=== PATIENT | male | born 1935 | race Caucasian/White ===

== ENCOUNTER → 2020-03-07 06:48 | Outpatient (CLI) | payer MEDICARE, SELFPAY ==
--- NOTE | 2020-03-07 06:49 | NM_ITS ---
APPROVED REPORT Exam: Nuclear Stress Test Indication: abn ekg, fm hx, pre-op surgery Patient Location: Outpatient Stress Tech: Tiny Erwin [place] Tech:Leighann Hernandez KERAAmilcar RT(R)(N) Ht: 5 ft 11 in Wt: 166 lbs HR: 62 bpm BP: 141/67 mmHg BSA: 1.95 m2 BMI: 23.1 History: abn ekg, fm hx, pre-op surgery Procedure: Patient received a 0.4 mg of intravenous Lexiscan, resting heart rate 62 bpm, resting blood pressure 141/67 mmHg, with Lexiscan maximum heart rate achived was 87 bpm which is Less than 85 % of the maximum predicted heart rate and blood pressure was 127/66 mmHg. With Lexiscan, patient denied any complaint of chest pain. Electrocardiogram Resting electrocardiogram showed sinus rhythm right bundle branch block, with Lexiscan there is less than 1.[address] segment depression noted from the baseline EKG. The EKG portion of the Lexiscan Myoview is nondiagnostic. Cardiac Stress and Resting SPECT Images: Cardiac Stress and Resting SPECT images were obtained using technetium 99m Myoview 32.5 mCi stress and 10.66 mCi at rest. Gated SPECT with analysis of segmental wall motion and calculation of the ejection fraction also done. Cardiac stress and resting SPECT images show a fixed defect involving the inferior wall with normal contractility gated SPECT is likely secondary to soft tissue attenuation, no reversible ischemia seen. Computer derived ejection fraction is over 65% with no regional wall motion abnormality, right ventricle is mildly enlarged with normal contractility. Conclusion: 1. The EKG portion of the Lexiscan Myoview is nondiagnostic. 2. No scintigraphic evidence of reversible ischemia seen, computer derived ejection fraction is over 65% with no regional wall motion abnormality, right ventricle is mildly enlarged with normal contractility. The fixed inferior defect is likely secondary to diaphragmatic attenuation. 3. Likely normal Lexiscan Myoview study. Electronically signed by : Carlitos Gore, 03/07/2020 12:01:41
--- NOTE | 2020-03-07 06:49 | CA_ITS ---
APPROVED REPORT Exam: Pharmacologic Technologist: Agata Dowling, Ht: 5 ft 11 in Wt: 165 lbs BSA: 1.94 m2 HR: 62 bpm BP: 141/67 mmHg Rhythm: SINUS RHYTHM,RBBB WITH STTW ABNORMALITIES Medical History Medications: Metoprolol,,,,, Asa,,,,, TAMSULOSIN,,,,, Allergies: No known drug allergies Cardiac Risk Factors: HTN Stress Test Details Test: LEXISCAN HR Resting HR: 59 bpm Max Heart Rate (APMHR): 137 bpm Max HR Achieved: 95 bpm Target HR (85% APMHR): 116 bpm % of APMHR: 69 Recovery HR: 81 bpm BP Resting BP: 141.0/67.0 mmHg Max BP: 141.0/67.0 mmHg Recovery BP: 131.0/65.0 mmHg ECG Resting ECG: SINUS RHYTHM,RBBB WITH STTW ABNORMALITES Medications Administered Cardizem Injection ( mg at ) Clinical Reason for Termination: Completed Protocol Exercise duration: 04:12 min Highest Stage Achieved: Exercise capacity: 1.0 METs Stress ECG Conclusion DURING INFUSION PATIENT HAD NO SYMPTOMS. NO ARRHYTHMIAS/ECTOPY. <1.[address] SEGMENT CHANGES. NON-DIAGNOSTIC Test Summary REST . . . . . . . Sitting REST . . . . . . . Sitting REST 22:29 . . 59 . 141/ 67 . . Stage 1 . . . . . . . Myoview Injected Stage 1 01:00 . . 84 . . . . Stage 2 01:00 . . 89 . 117/ 58 . . Stage 3 01:00 . . 89 . 127/ 66 . . Stage 4 01:00 . . 83 . 131/ 70 . . Stage 4 01:12 . . 84 . 125/ 67 . Stop exercise at 04:12 RECOVERY 01:00 . . 84 . . . . RECOVERY 02:00 . . 79 . . . . RECOVERY 03:00 . . 79 . 131/ 68 . . RECOVERY 04:00 . . 79 . 124/ 67 . . RECOVERY 04:15 . . 80 . 124/ 67 . . Electronically signed by : Carlitos Gore, 03/07/2020 11:57:39
--- NOTE | 2020-03-07 06:49 | CA_ITS ---
APPROVED REPORT EXAM: Comprehensive 2D, Doppler, and color-flow Echocardiogram [facility] Electrolytic: Suzie Mensah RT(R) Ht: 5 ft 11 in Wt: 166lbs BSA: 1.95 BP: 151/76 mmHg Indications: ex smoker, HTN, lymphoma, Abn EKG 2D Dimensions LVOT 1.84 cm (M/F) 1.5-2.5 M-Mode Dimensions RVDd 1.75 cm (0.9-2.6) LVDd 4.22 cm (3.5-5.7) LVDs 3.31 cm (3.5-5.7) IVSd 1.06 cm (0.6-1.1) PWd 0.65 cm (0.6-1.1) EF (Teich) 44.00% FS 21.60% EDV (Teich) 79.50 mL ESV (Teich) 44.50 mL LV Diastology E/A Ratio 1.48 Mitral Valve MV A Velocity 57.00 (40-130 cm/s) Left Ventricle Left atrium is mildly enlarged, left ventricle is normal size, mild concentric left ventricular hypertrophy, visually estimated ejection fraction 55% with no regional wall motion abnormality, grade 2 diastolic dysfunction seen without tissue Doppler evidence of raise left atrial pressure. Right Ventricle Right atrium and right ventricular mildly enlarged with normal contractility. Aortic Valve Aortic valve is thickened and calcified leaflet continue to display good mobility, there is no aortic stenosis, there is moderate aortic insufficiency. Mitral Valve Mitral valve leaflets are minimally thickened, there is mild mitral regurgitation. Tricuspid Valve Tricuspid valve is grossly normal, there is mild tricuspid regurgitation, calculated right ventricular systolic pressure is 43 mmHg. Pulmonic Valve Pulmonic valve is poorly visualized. Great Vessels Aortic root is normal size. Pericardium No significant pericardial effusion noted. Conclusion 1. Mild biatrial enlargement, normal left ventricular size, mild concentric left ventricular hypertrophy, visually estimated ejection fraction 55% with no regional wall motion abnormality, grade 2 diastolic dysfunction seen without tissue Doppler evidence of raise left atrial pressure. 2. Mildly enlarged right ventricle with normal contractility. 3. Thickened and calcified aortic valve without aortic stenosis, there is moderate aortic insufficiency. 4. Mild mitral and tricuspid regurgitation, calculated right ventricular systolic pressure is 43 mmHg. 5. No significant pericardial effusion noted. Electronically signed by : Carlitos Gore, 03/07/2020 11:56:25
== END ==
PROVIDERS: PCP General Practice; Visit Provider Urology
DX: R94.31 Abnormal electrocardiogram [ECG] [EKG]
CPT/HCPCS: 78452; 93017; 93306; A9502; J2785

== ENCOUNTER 2023-09-29 15:27 | Outpatient (CLI) | payer MEDICARE, SELFPAY | END 2023-09-29 23:59 | disposition home or self-care (01) | LOC: RT 15:29 | PROVIDERS: Visit Provider Nurse Practitioner Family | DX: R00.1 Bradycardia, unspecified (principal) | CPT/HCPCS: 93270 ==

== ENCOUNTER 2023-10-10 10:13 | Outpatient (CLI) | payer MEDICARE, SELFPAY ==
--- NOTE | 2023-10-10 10:13 | CA_ITS ---
APPROVED REPORT EXAM: Comprehensive 2D, Doppler, and color-flow Echocardiogram [facility] Specialists: Aranza Pastrana RVT Ht: 5 ft 11 in Wt: 170lbs BSA: 1.97 BP: 140/65 mmHg Indications: CP,RBBB,BRADYCARDIA,ABN EKG,SOA,EX SMOKER 2D Dimensions LA Volume 54.80 mL LA Volume Index 27.82 mL/m2 (M/F) 16-34 M-Mode Dimensions RVDd 2.42 cm (0.9-2.6) LA Diam 3.72 cm (1.9-4.0) LVDd 4.42 cm (3.5-5.7) LVDs 2.72 cm (3.5-5.7) IVSd 0.72 cm (0.6-1.1) PWd 0.49 cm (0.6-1.1) EF (Teich) 69.00% FS 38.50% EDV (Teich) 88.60 mL TAPSE 3.11 (<1.7) ESV (Teich) 27.50 mL LV Diastology E Decel Time 193 (160-240 msec) E/A Ratio 1.5 Aortic Valve FRANK Index 1.20 cm2/m2 AoV Peak Renny. 164.0 (50-130 cm/s) AI PHT 794.00 ms AO Peak GR. 10.70 mmHg AO Mean GR. 4.70 (<5 mmHg) AO VTI 30.9 (18-25 cm) FRANK (VTI) 2.43 (2.5-4.5 cm2) Mitral Valve MV E Max Renny. 82.0 (40-130 cm/s) MV A Velocity 53.0 (40-130 cm/s) E/A Ratio 1.54 MV PHT 57.0 ms Pulmonary Valve PV Peak Velocity 79.0 (50-150 cm/s) Tricuspid Valve TR P. Velocity 297.00 cm/s RAP Estimate 10.00 mmHg RVSP 45.20 mmHg Left Ventricle The left ventricle is normal size. Left ventricular systolic function is mild to moderately decreased. There is proximal septal thickening present. There is mild to moderate global hypokinesis. There is moderate hypokinesis of the septal and inferoseptal LV lucero. The septum is asynchronous. Grade 2 diastolic dysfunction is present. LVEF is 40%. Right Ventricle The right ventricle is normal size. The right ventricular systolic function is normal. Atria Left atrium is mildly dilated. Right atrium is mildly dilated. There is no Doppler evidence of interatrial shunt. Aortic Valve The aortic valve is mildly thickened. There is no aortic valvular stenosis. Mild aortic regurgitation. Mitral Valve The mitral valve leaflets are mildly thickened. No evidence of mitral valve stenosis. Mild mitral regurgitation. Tricuspid Valve The tricuspid valve leaflets are thin and pliable. Mild tricuspid regurgitation. RVSP is 30-35 mmHg. Pulmonic Valve The pulmonary valve is normal in structure. Mild to moderate pulmonic regurgitation. Great Vessels The aortic root is normal in size. The ascending aorta is not well visualized. IVC is normal in size and collapses >50% with inspiration. Pericardium There is no pericardial effusion. Other Information Study Quality: Fair Conclusion Mild to moderate reduction in LV systolic function (LVEF 40%). Grade 2 diastolic dysfunction is present. Moderate hypokinesis of the septal and inferoseptal LV lucero. The septum is asynchronous. Mild biatrial dilation. Mild AI, mild MR, mild TR Mild to moderate PI. RVSP 30-35 mmHg. Electronically signed by : Nadege Roth MD 10/11/2023 13:24:54
[2023-10-10 10:47] VITALS: BMI 23.7
[2023-10-10 10:52] VITALS: BP 156/81; PULSE 67; RESP 16; O2SAT 98
[2023-10-10] MEDS: METOPROLOL TARTRATE 25MG TABLET *IVABRADINE+METOPROLOL REGIMINE 25 MG PO (11:00)
[2023-10-10 11:06] LABS: Chloride 105 mmol/L (98-107); Sodium 140 mmol/L (136-145)
[2023-10-10 11:07] LABS: Potassium 4.2 mmoL/L (3.5-5.1)
[2023-10-10 11:09] LABS: Blood Urea Nitrogen 15 mg/dl (9-20); Creatinine Clearance Estimated 57 mL/min (50-200); Estimated Glomerular Filt Rate 71 ml/min (>60); GFR (African American) 86 ML/MIN (>60)
[2023-10-10 11:10] LABS: Anion Gap 7.2 mEq/L (5-15); Calcium 9.5 mg/dl (8.4-10.2); Carbon Dioxide 32 mmol/L (22.0-30.0); Glucose 93 mg/dl (74-100)
--- NOTE | 2023-10-10 11:22 | CT_ITS ---
APPROVED REPORT Hogshead Wrecker: CLINICAL INDICATION Chest Pain TECHNIQUE Image Acquisition: A 128 slice MDCT scanner ([employer]) was used for data acquisition. A noncontrast coronary calcium scan was performed. A CT attenuation threshold of 130 Hounsfield units (HU) was used for the detection of calcium in contiguous voxels of 1 sq mm in area to be counted as individual lesions. Bolus tracking in the ascending aorta with a threshold of 180 HU was performed. Immediately afterwards, ECG synchronized cardiac CT was then performed from the cardiac base to apex using retrospective gating with ECG tube current modulation. A total of 85 mL of Isovue 370 mg/mL contrast medium was administered at 5 mL/sec followed by a saline flush using a biphasic injection protocol. A tube voltage of 120 KVp was used. The patient received the following medications prior to the cardiac CT. 25 mg of oral metoprolol 0.8 mg of sublingual nitroglycerin The average heart rate at the time of acquisition was 54 bpm and regular. Image Reconstruction Transaxial images were reconstructed at 0.67 mm slide thickness. Data was reviewed interactively on an advanced workstation capable of 2 and 3-dimensional displays in all conventional reconstruction formats, including multiplanar reformations, maximum intensity projections, curved multiplanar reformations, and volume rendered reconstructions. When applicable, selected routine images describing the relevant coronary anatomy and pathology were saved and sent to PACS. Complications None Technical Quality Overall image quality was good. Coronary artery opacification was adequate. Total DLP (Dose-Length Product) is 1561.9 mGy-cm. The reported value represents the total of one or more individual components during the CT acquisition of this date and at this time, and as such, the same value may appear in more than one CT report depending on the interpreting/reporting physicians. COMPARISON None FINDINGS CT Coronary Calcium Scoring LMA (Left Main Artery) = 0 LAD (Left Anterior Descending) = 393 LCX (Left Coronary Circumflex) = 140 RCA (Right Coronary Artery) = 2 Total Calcium Score = 535 using the AJ-130 method. The observed calcium score of 535 is at 50th percentile for subjects of the same age, sex, and race/ethnicity. The interpretation of the calcium heart score is based on the following continuum*: 0 = no calcified plaque detected (risk of coronary artery disease is very low ??? less than 5%) 1-10 = calcium detected in extremely minimal levels (risk of coronary diseases is still low ??? less than 10%) 11-100 = mild levels of plaque detected with certainty (mild or minimal narrowing of heart arteries is likely) 101-400 = definite,at least moderate levels of plaque detected (relatively high risk of a heart attack within 3-5 years) >401-999 = extensive levels of plaque detected (high risk of heart attack, high levels of vascular disease are present, high likelihood of at least one significant coronary narrowing) *The calcium heart score quantifies the burden of coronary calcification/plaque in the coronary arteries. The calcium heart score is not able to evaluate the presence or burden of non-calcified (i.e. soft) plaque. There is also identifiable calcification in the ascending thoracic aorta and the mitral valve annulus.. Coronary CT Angiography The coronary arterial system is right dominant. Quantitative Stenosis Grading: Left Main (LM): The left main originates normally from the left sinus of Valsalva. The LM trifurcates into the left anterior descending artery, ramus intermedius, and left circumflex artery. The LM is patent with no evidence of atherosclerosis. Left Anterior Descending (LAD) and Diagonal Branches: The LAD gives off 2 diagonal branch(es). There is mixed calcified/noncalcified plaque in the proximal LAD first diagonal branch, with up to 70-90% luminal stenosis. There is no evidence of LAD-myocardial bridge. Ramus intermedius: There is calcified plaque along the RI, but with no luminal stenosis. Left Circumflex (LCX) and Obtuse Marginals (OM): The LCX gives off 2 Obtuse Marginal (OM) branch(es). There is mixed calcified/noncalcified plaque in the proximal and mid LAD Cx, with < 30% luminal stenosis. There is also calcified plaque in the OM1, with up to 25-50% luminal stenosis. Right Coronary Artery (RCA): The RCA originates normally from the right sinus of Valsalva. The RCA gives off a posterior descending artery (PDA) and posterolateral (PL) branches. There is a focus of calcified plaque in the proximal RCA, with no luminal stenosis. Non-Coronary Cardiac Findings: Analysis of the left ventricular (LV) structure and function was performed after 3-D reconstruction of the LV from axial images, with user-corrected automatic contouring for assessment of LV volumes and user-defined reconstruction from oblique planes for measurement of 3-D cardiac structure and function. -The left ventricle systolic function is mildly reduced (LVEF 48%). -There is no left atrial appendage filling defect. Two right pulmonary veins and two left pulmonary veins drain normally into the left atrium. -No pericardial thickening or calcification. -Central and branch pulmonary arteries in the [id number] are unremarkable. -Thoracic aorta within the visualized thoracic aortic-branches in the [id number] is unremarkable. Extracardiac Structures No significant extra-cardiac findings. Note, however, that this study is focused on the cardiac findings. IMPRESSION -Presence of coronary calcification with an Agatston score = 535 using the AJ-130 method. -The observed calcium score of 535 is at 50th percentile for subjects of the same age, sex, and race/ethnicity. -Presence of flow-limiting atherosclerotic plaque in the proximal LAD. -CAD-RADS 4A. Management recommendations per ACC/AHA guidelines*, as clinically appropriate. -Of note the left ventricular systolic function is mildly reduced (LVEF 48%). Correlation with new or recent TTE is recommended. *Recommendations: CAD RADS 0: Reassurance. Consider non-atherosclerotic causes of chest pain. CAD RADS 1: Consider non-atherosclerotic causes of chest pain. Consider preventive therapy and risk factor modification. CAD RADS 2: Consider non-atherosclerotic causes of chest pain. Consider preventive therapy and risk factor modification, particularly for patients with nonobstructive plaque in multiple segments. CAD RADS 3: Consider further functional testing. Consider symptom-guided anti-ischemic and preventive pharmacotherapy as well as risk factor modification per published guideline statements. CAD RADS 4A: Consider further functional testing or invasive coronary angiography with revascularization per published guideline statements. Consider symptom-guided anti-ischemic and preventive pharmacotherapy as well as risk factor modification per published guideline statements. CAD RADS 4B: Invasive coronary angiography recommended with revascularization per published guideline statements. Consider symptom-guided anti-ischemic and preventive pharmacotherapy as well as risk factor modification per published guideline statements. CAD RADS 5: Consider invasive angiography and/or viability assessment with revascularization per published guideline statements. Consider symptom-guided anti-ischemic and preventive pharmacotherapy as well as risk factor modification per published guideline statements. CRITICAL RESULT None COMMUNICATION Per this written report The coronary and cardiac findings of this CCTA were reviewed, reported, and signed by Jatinder Roth MD (Appliances Sample Maker) Conclusion Electronically signed by : Nadege Roth MD 10/18/2023 11:59:31
[2023-10-10 11:45] VITALS: BP 154/87; PULSE 63; RESP 16; O2SAT 97
[2023-10-10] MEDS: NITROGLYCERIN 0.4MG SL TABLET 0.800000000000000044 MG SL (11:45)
[2023-10-10 11:50] VITALS: BP 127/69; PULSE 60; RESP 18; O2SAT 98
[2023-10-10 11:55] VITALS: BP 90/48; PULSE 56; RESP 18; O2SAT 96
[2023-10-10 12:00] VITALS: BP 106/45; PULSE 58; RESP 18; O2SAT 97
[2023-10-10] MEDS: SODIUM CHLORIDE 0.9% 10ML SYR (RAD ONLY) 10 ML IV (12:12)
[2023-10-10] MEDS: 0.9 % SODIUM CHLORIDE 50 ML VIAL IV (12:12)
[2023-10-10] MEDS: IOPAMIDOL-370 (76%);100ML BOTTLE 85 ML IV (12:13)
== END 2023-10-10 12:05 | disposition home or self-care (01) ==
LOC: RT 10:13 → RAD 10:47
PROVIDERS: Visit Provider Internal Medicine
DX: I45.2 Bifascicular block (principal); R07.9 Chest pain, unspecified; R94.31 Abnormal electrocardiogram [ECG] [EKG]
CPT/HCPCS: 75571; 75574; 80048; 93306; Q9967

== ENCOUNTER 2023-10-27 08:26 | Day surgery (SDC) | payer MEDICARE, SELFPAY ==
[2023-10-27] VITALS (16 sets, daily range): BP systolic 88–158; BP diastolic 35–73; PULSE 45–75; RESP 17–24; TEMP 36.6; O2SAT 91–100; BMI 24.3
--- NOTE | 2023-10-27 07:25 | IR_ITS ---
APPROVED REPORT Patient Location: Outpatient PROCEDURES Left heart catheterization Left ventriculogram Selective coronary angiogram Intravascular ultrasound to the LAD Drug-eluting stent deployment to the proximal LAD INDICATION Coronary artery disease, MLA of 3.5 mm??? 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 COMPLICATIONS NONE Estimated Blood Loss: LESS THAN 10 ML TECHNIQUE One percent lidocaine used to anesthetize the right anterior aspect of the wrist. The right radial artery was accessed via the Seldinger technique. A 6 [place] sheath was placed in the right radial artery. 2.5 mg of Verapamil, 800 mcg of nitroglycerin, 1mg Lidocaine and 5000 U Heparin were given through the arterial sheath. The papa catheter was also used to perform left heart catheterization, left ventriculogram and selective coronary angiogram. At the end of the diagnostic angiogram therapeutic heparin was administered giving a therapeutic ACT and the Poppa catheter exchanged for a 6 [place] JL 3 catheter. A Choice PT extra-support wire was placed into the LAD and intravascular ultrasound probe was advanced. MLA measured 3.5 in the proximal LAD for a 3 mm x 18 mm Matthew frontier stent was deployed at 20 michael reducing the severe stenosis to 0%. KENIA-3 flow was present before and after the procedure. During the procedure the apparatus was removed the sheath was removed and hemostasis was achieved using TR banding patient was transferred to postop putting in stable condition ANGIOGRAPHIC RESULTS The left main artery Normal The left anterior descending artery Proximal 30% followed by additional 70% stenosis with mid vessel 10 to 20% stenoses The circumflex artery Dominant vessel with diffuse moderate vascular ectasia with no stenosis greater than 20% throughout The right coronary artery Nondominant yet still large with mild 10 to 20% luminal regularities The VU ventriculogram reveals 40% The left ventricular end-diastolic pressure 15 mmHg IMPRESSION Severe proximal LAD disease Successful stenting the proximal LAD severe disease reduced to 0% with 1 drug-eluting stent Reduced ejection fraction 2-1 Mobitz 2 AV block PLAN 1. Plavix and aspirin 2. Patient will be jailed for CANOPY STRINGER-P 3. Cardiac rehabilitation after CANOPY STRINGER-P placed 4. LDL less than 55 to be achieved with high intensity statin 5. Avoidance of tobacco products 6. Risk factor modification Electronically signed by : Donis Wei MD 10/27/2023 11:22:08
[2023-10-27 08:54] LABS: Basophils # 0.1 K/mm3 (0-0.2); Basophils % 0.8 % (0.1-2.0); Eosinophils # 0.2 K/mm3 (0.0-0.4); Eosinophils % 1.9 % (0.1-12.0); Hemoglobin 13.2 g/dL (14.1-18.0); Lymphocytes # 2.7 K/mm3 (0.7-4.5); Lymphocytes % 32.6 % (10-50); Mean Corpuscular HGB Conc 32.2 g/dL (31.8-35.4); Mean Corpuscular Volume 96.1 fl (80-94); Mean Platelet Volume 8.1 fl (7.4-10.4); Monocytes # 0.4 K/mm3 (0.1-1.0); Monocytes % 4.7 % (1.7-9.3); Platelet Count 205 K/mm3 (142-424); Red Blood Count 4.26 M/mm3 (4.60-6.20); Red Cell Distribution Width 13.9 % (11.5-17.5); White Blood Count 8.4 K/mm3 (4.8-10.8)
[2023-10-27 09:06] LABS: Anion Gap 9.9 mEq/L (5-15); Blood Urea Nitrogen 20 mg/dl (9-20); Calcium 9.4 mg/dl (8.4-10.2); Carbon Dioxide 31 mmol/L (22.0-30.0); Chloride 103 mmol/L (98-107); Creatinine Clearance Estimated 46 mL/min (50-200); Estimated Glomerular Filt Rate 57 ml/min (>60); GFR (African American) 69 ML/MIN (>60); Glucose 103 mg/dl (74-100); Potassium 3.9 mmoL/L (3.5-5.1); Sodium 140 mmol/L (136-145)
[2023-10-27] MEDS: HEPARIN 1,000 UNITS/500ML NS (CATH LAB) 3000 UNIT IV (10:27)
[2023-10-27] MEDS: diphenhydrAMINE 50MG/ML VIAL 50 MG IV (10:27)
[2023-10-27] MEDS: 0.9 % SODIUM CHLORIDE 500 ML 25 ML IV (10:27)
[2023-10-27] MEDS: LIDOCAINE 1% 10ML MDV 20 ML IJ (10:27)
[2023-10-27] MEDS: NITROGLYCERIN 800MCG/8ML SYR (CATH LAB) 800 MCG IA (10:28)
[2023-10-27] MEDS: VERAPAMIL 2.5MG/ML 2ML VIAL 2.5 MG IV (10:28)
[2023-10-27] MEDS: HEPARIN 1,000 UNITS/ML 10ML VIAL (CATH LAB) 10000 UNIT IV (10:28)
[2023-10-27] MEDS: MIDAZOLAM HCL 1MG/1ML 5ML VIAL 1 MG IV (11:10)
[2023-10-27] MEDS: FENTANYL 100MCG/2ML VIAL 50 MCG IV (11:10)
[2023-10-27] MEDS: CLOPIDOGREL 300MG TABLET 600 MG PO (11:20)
[2023-10-27 14:48] LABS: CATHL Activated Clotting Time 355 SEC (74-125)
== END 2023-10-27 14:52 | disposition home or self-care (01) ==
PROVIDERS: PCP Nurse Practitioner Family; Visit Provider Internal Medicine
DX: I44.1 Atrioventricular block, second degree (principal); R93.1 Abnormal findings on diagnostic imaging of heart and coronary circulation; I42.9 Cardiomyopathy, unspecified; Z79.899 Other long term (current) drug therapy; I48.0 Paroxysmal atrial fibrillation; I34.0 Nonrheumatic mitral (valve) insufficiency; I35.1 Nonrheumatic aortic (valve) insufficiency
CPT/HCPCS: 80048; 85025; 85347; 92928; 92978; 93458; 99152; 99153; C1725; C1769; C1876; C9600; J1644

== ENCOUNTER 2023-10-28 11:12 | Outpatient (CLI) | payer MEDICARE, SELFPAY ==
[2023-10-28 11:36] LABS: Basophils # 0.1 K/mm3 (0-0.2); Basophils % 0.4 % (0.1-2.0); Eosinophils # 0.2 K/mm3 (0.0-0.4); Eosinophils % 1.7 % (0.1-12.0); Hematocrit 37.8 % (42.0-52.0); Lymphocytes # 3.3 K/mm3 (0.7-4.5); Lymphocytes % 29.5 % (10-50); Mean Corpuscular HGB Conc 34.3 g/dL (31.8-35.4); Mean Corpuscular Volume 93.5 fl (80-94); Mean Platelet Volume 7.4 fl (7.4-10.4); Monocytes # 0.5 K/mm3 (0.1-1.0); Monocytes % 4.3 % (1.7-9.3); Neutrophils # 7.2 K/mm3 (1.8-7.8); Neutrophils % 64.1 % (37.0-80.0); Platelet Count 194 K/mm3 (142-424); Red Blood Count 4.05 M/mm3 (4.60-6.20); Red Cell Distribution Width 13.7 % (11.5-17.5); White Blood Count 11.2 K/mm3 (4.8-10.8)
[2023-10-28 13:38] LABS: Chloride 104 mmol/L (98-107); Potassium 4.7 mmoL/L (3.5-5.1); Sodium 137 mmol/L (136-145)
[2023-10-28 13:41] LABS: Anion Gap 10.7 mEq/L (5-15); Blood Urea Nitrogen 21 mg/dl (9-20); Carbon Dioxide 27 mmol/L (22.0-30.0); Estimated Glomerular Filt Rate 71 ml/min (>60); GFR (African American) 86 ML/MIN (>60)
[2023-10-28 13:42] LABS: Calcium 9.2 mg/dl (8.4-10.2); Glucose 81 mg/dl (74-100)
== END 2023-10-28 23:59 | disposition home or self-care (01) ==
LOC: LAB 11:12
PROVIDERS: PCP Nurse Practitioner Family; Visit Provider Internal Medicine
DX: I25.10 Atherosclerotic heart disease of native coronary artery without angina pectoris (principal); Z98.61 Coronary angioplasty status
CPT/HCPCS: 36415; 80048; 85025

== ENCOUNTER 2023-11-08 14:31 | Observation (INO) | payer MEDICARE, SELFPAY ==
[2023-11-08] VITALS (15 sets, daily range): BP systolic 103–135; BP diastolic 53–77; PULSE 69–97; RESP 16–20; TEMP 36.6–37.1; O2SAT 93–100; BMI 23.0
--- NOTE | 2023-11-08 07:22 | IR_ITS ---
APPROVED REPORT Patient Location: Outpatient Manager Personal: KENA Lopez RT (R) PROCEDURES 1. Pocket Revision 2. Removal of generator 3. Repositioning of coronary sinus lead 4. Reinsertion of generator INDICATION Positional Diaphramatic Stimulation Informed consent was obtained prior to the procedure. COMPLICATIONS None Estimated Blood Loss: Less than 10 mls TECHNIQUE 1% Lidocaine with epinephrine used to anesthetized the left anterior aspect of the chest. Scalpel was used to make the initial cutaneous incision then was used to dissect down tinto the fascia and existing generator. The generator was removed from the existing pocket. Digital manipulation was required along with intermitten use of a scalpel to revise the pocket. The Coronary Sinus lead was removed from the generator. CS lead was removed form patient under fluoroscopy. The patient was then placed in Trendelenburg position and the subclavian vein was accessed once via the Selinger technique, there is one wire in the vein. A 10.5 Taiwanese sheath was placed under fluoroscopic guidance into the subclavian vein over the wire. The dilator was removed from the sheath. Using fluoroscopic guidance, the CS was then placed into Coronary Sinus with a guide sheath and confrimed with cotrast. Electrical interrogation demonstrated acceptable thresholds and voltage number. The lead was then secured into place using 3-0 silk and attached to the generator. 1 gram of Ancef was used to flush the pocket. Following that the generator was secured to the fascia and in place, Monocryl was used to close the subcutaneous layers while mercedes were used to close the cutaneous layer. A pressure dressing was placed and the patient was transferred to the postop holding area in stable condition for postoperative care. INTERROGATION Electrical interrogation demonstrated acceptable thresholds and voltage number. IMPRESSION 1. Successful Pocket Revision 2. Successful Removal of generator 3. Successful Repositioning of coronary sinus lead 4. Suceessful Reinsertion of generator PLAN 1. Post op wound care Electronically signed by : Donis Wei MD 11/09/2023 13:12:05
[2023-11-08 10:42] LABS: Basophils # 0.1 K/mm3 (0-0.2); Basophils % 0.6 % (0.1-2.0); Eosinophils # 0.1 K/mm3 (0.0-0.4); Eosinophils % 1.6 % (0.1-12.0); Hematocrit 38.7 % (42.0-52.0); Hemoglobin 12.5 g/dL (14.1-18.0); Lymphocytes # 2.4 K/mm3 (0.7-4.5); Lymphocytes % 26.1 % (10-50); Mean Corpuscular HGB Conc 32.4 g/dL (31.8-35.4); Mean Corpuscular Hemoglobin 31.3 pg (27.0-31.2); Mean Corpuscular Volume 96.7 fl (80-94); Mean Platelet Volume 7.8 fl (7.4-10.4); Monocytes # 0.4 K/mm3 (0.1-1.0); Neutrophils # 6.1 K/mm3 (1.8-7.8); Neutrophils % 67.7 % (37.0-80.0); Platelet Count 187 K/mm3 (142-424); Red Cell Distribution Width 13.9 % (11.5-17.5); White Blood Count 9.1 K/mm3 (4.8-10.8)
[2023-11-08 10:48] LABS: Anion Gap 11.1 mEq/L (5-15); Blood Urea Nitrogen 17 mg/dl (9-20); Calcium 9.5 mg/dl (8.4-10.2); Carbon Dioxide 30 mmol/L (22.0-30.0); Chloride 102 mmol/L (98-107); Creatinine Clearance Estimated 55 mL/min (50-200); Estimated Glomerular Filt Rate 71 ml/min (>60); GFR (African American) 86 ML/MIN (>60); Glucose 103 mg/dl (74-100); Potassium 4.1 mmoL/L (3.5-5.1); Sodium 139 mmol/L (136-145)
--- NOTE | 2023-11-08 11:04 | EXP.ANES.CKL ---
[facility] Disclaimer: The information contained in this section may have been updated after the patient was seen, as this information can be updated by other users. 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 LVH (left ventricular hypertrophy) RBBB (right bundle branch block with left anterior fascicular block) SOB (shortness of breath) on exertion Chest pain Lymphoma PAF (paroxysmal atrial fibrillation) Abnormal EKG Encounter for pre-operative cardiovascular clearance Surgical History Status post biventricular pacemaker Social History (Updated 11/08/23 @ 10:23 by Chana Ramirez RN) Smoking Status: Former smoker alcohol intake: never substance use type: denies use current occupational status: employed and disabled Travel in the last 8 weeks: Inside the [place] [facility] Anesthesia Checklist Patient Identification Patient Identification: Arm Band Structural Data Admitted From: Home Planned Operative Procedure/s: Pacemaker Lead Revision Consent for Planned Operative Procedure(s) Verified: Yes Verified Documents: Surgical Consent and History and Physical NPO Status Verified Time NPO: 00:00 Additional verifications Anesthesia Reactions: No Hx Blood Transfusions: No Blood Transfusion Reaction: No Airway Assessment Mallampati Score:: Class II C-Spine Mobility Assessed: Yes TMJ Mobility Assessed: Yes Dentition: Good Dentition (upper partial removed) Neurological Assessment Level of Consciousness: Awake, Alert and Appropriate Anesthesia Plan Anesthesia Risk discussed: Yes Anesthesia Plan: Verified ASA Class: IV Anesthesia Type: MAC
[2023-11-08] MEDS: 0.9 % SODIUM CHLORIDE 1000ML 1,000 ML 25 ML IV (11:44)
[2023-11-08] MEDS: LIDOCAINE 1% W/EPI 1:100,000 20ML VIAL 20 ML SQ (11:44)
[2023-11-08] MEDS: CEFAZOLIN SODIUM 1 GM in 0.9 % SODIUM CHLORIDE 50 ML IV (11:44)
[2023-11-08] MEDS: CEFAZOLIN 1GM VIAL 1 GM TP (13:33)
--- NOTE | 2023-11-08 13:44 | CA_ITS ---
APPROVED REPORT EXAM: Limited 2D and color flow Echocardiogram Behavioral Health Clinician: Urszula Pate RCS, RVS Ht: 5 ft 11 in Wt: 165lbs BSA: 1.94 BP: 112/70 mmHg Indications: Post pacer, pericardial effusion, RBBB 2D Dimensions LVDs 2.97 cm M-Mode Dimensions RVDd 0.99 cm (0.9-2.6) LVDd 5.07 cm (3.5-5.7) LVDs 3.64 cm (3.5-5.7) IVSd 0.87 cm (0.6-1.1) PWd 0.82 cm (0.6-1.1) EF (Teich) 54.20% FS 28.20% EDV (Teich) 122.10 mL ESV (Teich) 55.90 mL Tricuspid Valve TR P. Velocity 224.00 cm/s RAP Estimate 10.00 mmHg RVSP 30.10 mmHg Other Information Study Quality: Technically Difficult Conclusion This is a limited TTE to evaluate for pericardial effusion post pacemaker placement. Limited windows were obtained. Technically difficult study. There is a trivial, circumferential pericardial effusion present. No evidence of chamber collapse. The IVC is small and collapsible. Overall, no echo indications of tamponade. Serial limited TTE evaluations are recommended in the setting of recent procedure. Of note, the findings were relayed to the primary cardiology team in real-time. Electronically signed by : Nadege Roth MD 11/14/2023 11:56:18
--- NOTE | 2023-11-08 14:39 | HMH.PHAINT1 ---
Pharmacy Intervention Comments: MEDICATION RECONCILIATION COMPLETED ON PATIENT USING EXTERNAL FILL HISTORY FROM PHARMACY. -KINGA MILLER, NICHOLASD
--- NOTE | 2023-11-08 14:42 | XR_ITS ---
FINAL REPORT TECHNIQUE: Single view. CLINICAL HISTORY: Lead revision. COMPARISON: October 31, 2023. FINDINGS: There is a left-sided pacemaker identified. The heart size is normal. The mediastinum is normal. There is no focal infiltrate or edema. There are no pleural effusions. There is no pneumothorax. There is no osseous abnormality. IMPRESSION: No acute cardiopulmonary process. Reviewed, Interpreted and Dictated by Preston Garsia MD Transcribed by Emma Toledo PA-C Authenticated and [facility]
--- NOTE | 2023-11-08 15:51 | EXP.HP ---
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 Patient initially presented to hospital for pacemaker malfunction. Patient was admitted for observation per cardiology. Patient had granulation denies chest pain nausea vomiting diarrhea constipation dysuria. [facility] Disclaimer: The information contained in this section may have been updated after the patient was seen, as this information can be updated by other users. 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 LVH (left ventricular hypertrophy) RBBB (right bundle branch block with left anterior fascicular block) SOB (shortness of breath) on exertion Chest pain Lymphoma PAF (paroxysmal atrial fibrillation) Abnormal EKG Encounter for pre-operative cardiovascular clearance Surgical History Status post biventricular pacemaker Family History (Updated 11/08/23 @ 15:37 by Heather Taylor RN) Other No significant family history Social History Smoking Status: Former smoker alcohol intake: never substance use type: denies use current occupational status: employed and disabled Travel in the last 8 weeks: Inside the [place] Review of Systems Review of Systems Review of systems:: pertinent systems reviewed and negative unless documented below Meds Home Medications and Allergies Home Medications Medication Instructions Recorded Confirmed Type aspirin 81 mg tablet,delayed 81 mg PO DAILY 03/04/20 11/08/23 History release tamsulosin 0.4 mg capsule 0.4 mg PO HS 03/04/20 11/08/23 History dutasteride 0.5 mg capsule 0.5 mg PO DAILY 09/29/23 11/08/23 History metoprolol succinate 25 mg 25 mg PO DAILY #90 tabs 09/29/23 11/08/23 Rx tablet,extended release 24 hr lisinopril 10 mg tablet 10 mg PO DAILY #90 tabs 10/11/23 11/08/23 Rx atorvastatin 40 mg tablet 40 mg PO HS #30 tabs 10/27/23 11/08/23 Rx clopidogrel 75 mg tablet (Plavix) 75 mg PO DAILY #90 tabs 10/27/23 11/08/23 Rx oxycodone-acetaminophen 5 mg-325 1 tab PO Q8HP PRN Moderate Pain 11/08/23 11/08/23 History mg tablet (Percocet) (Scale Score 5-6) New Prescriptions to Start Prescriptions: Allergies Allergy/AdvReac Type Severity Reaction Status Date / Time No Known Allergies Allergy Verified 10/31/23 09:46 Exam Data for Last 24 hours Vital signs and Labs for Last 24 Hours: Temp Pulse Resp BP Pulse Ox O2 Del Method 97.8 F 84 16 129/68 97 Room Air 11/08/23 15:00 11/08/23 15:00 11/08/23 15:11/08/23 15:11/08/23 15:11/08/23 15:19 Laboratory Results - last 24 hr 11/08/23 10:15: WBC 9.1, RBC 4.00 L, Hgb 12.5 L, Hct 38.7 L, MCV 96.7 H, MCH 31.3 H, MCHC 32.4, RDW 13.9, Plt Count 187, MPV 7.8, Neut % (Auto) 67.7, Lymph % (Auto) 26.1, [place] % (Auto) 4.0, Eos % (Auto) 1.6, Baso % (Auto) 0.6, Neut # (Auto) 6.1, Lymph # (Auto) 2.4, [place] # (Auto) 0.4, Eos # (Auto) 0.1, Baso # (Auto) 0.1, Sodium 139, Potassium 4.1, Chloride 102, Carbon Dioxide 30, Anion Gap 11.1, BUN 17, Creatinine 1.00, Estimated Creat Clear 55, Estimated GFR 71, Est GFR ( Amer) 86, Glucose 103 H, Calcium 9.5 I & O for Last 24 hours: Intake & Output 11/05/23 11/06/23 11/07/23 11/08/23 23:59 23:59 23:59 23:59 Weight 74.843 kg Constitutional Constitutional: no acute distress *Routine HEENT Exam Head: Present normocephalic Eye: Present EOMI and PERRL ENT: Present mucous membranes moist *Routine Neck Exam Neck: Present supple; Absent lymphadenopathy *Routine Respiratory Exam Respiratory: Present CTA bilaterally *Routine Cardiovascular Exam Cardiovascular: Present RRR *Routine Abdominal Exam Abdominal: Present soft and normoactive bowel sounds; Absent tenderness *Routine Rectal Exam Rectal:: deferred *Routine Genitalia Exam Genitalia:: deferred *Routine Extremities Exam Extremities: Absent cyanosis, clubbing or edema *Routine Skin Exam Skin: Present warm; Absent rash *Routine Neurological Exam Neurological: Present alert and oriented X3 Assessment and Plan *Assessment and plan (1) Pacemaker lead malfunction: Status: Acute Category: Medical Code(s): T82.110A - Breakdown (mechanical) of cardiac electrode, initial encounter (2) Status post biventricular pacemaker: Status: Acute Category: Surgical Code(s): Z95.0 - Presence of cardiac pacemaker Plan Patient is a 88-year-old male with past medical history of 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 Patient initially presented to hospital for pacemaker malfunction. Patient was admitted for observation per cardiology. Patient had granulation denies chest pain nausea vomiting diarrhea constipation dysuria. 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
[2023-11-08] MEDS: IOPAMIDOL-370 (76%);100ML BOTTLE 175 ML IV (15:59)
[2023-11-08] MEDS: HEPARIN SODIUM 5,000 UNIT/ML VIAL 5000 UNIT SQ ×2 (16:04→23:03)
--- NOTE | 2023-11-08 17:48 | PC.NURSE ---
Pt A&Ox4 on RA, family member at bedside. No complaints at this time, call light within reach.
[2023-11-08] MEDS: ATORVASTATIN 40MG TABLET 40 MG PO (20:21)
[2023-11-09] VITALS: BP 112/66; PULSE 80; PULSE 83; RESP 16; TEMP 36.8; O2SAT 91
[2023-11-09 04:00] VITALS: BP 110/65; PULSE 80; PULSE 81; RESP 18; TEMP 36.8; O2SAT 95; BMI 22.5
--- NOTE | 2023-11-09 04:37 | PC.NURSE ---
VITAL SIGNS STABLE. AFEBRILE. DRSG TO LEFT UPPER CHEST/PACEMAKER SITE C/D/I. SCANT BRUISING NOTED. DENIES PAIN. V-PACED/BBB NOTED PER TELEMETRY. HEART SOUNDS DISTANT REGULAR.
--- NOTE | 2023-11-09 06:00 | CA_ITS ---
APPROVED REPORT EXAM: Limited 2D Echocardiogram Crime Analyst: Urszula Pate, RCS, RVS Ht: 5 ft 11 in Wt: 165lbs BSA: 1.94 BP: 118/70 mmHg Indications: Pericardial effusion short term follow up post pacer Other Information Study Quality: Fair Conclusion This is a limited TTE to evaluate for pericardial effusion post pacemaker placement. Limited windows were obtained. Technically difficult study. There is a trivial, circumferential pericardial effusion present. There is no evidence of chamber collapse. The IVC is small and collapsible. Overall, there are no clear echo indications of tamponade. The effusion is best visualized in the subcostal views (and appears slightly larger as compared to other views). When directly compared to TTE from 1 day prior, the pericardial effusion size overall appears unchanged. The findings were relayed to the cardiology inpatient team in real-time. Electronically signed by : Nadege Roth MD 11/14/2023 11:58:40
[2023-11-09 06:37] LABS: Basophils % 0.4 % (0.1-2.0); Eosinophils # 0.2 K/mm3 (0.0-0.4); Eosinophils % 1.5 % (0.1-12.0); Hematocrit 36.3 % (42.0-52.0); Hemoglobin 11.8 g/dL (14.1-18.0); Lymphocytes # 1.9 K/mm3 (0.7-4.5); Lymphocytes % 17.6 % (10-50); Mean Corpuscular HGB Conc 32.4 g/dL (31.8-35.4); Mean Corpuscular Hemoglobin 30.9 pg (27.0-31.2); Mean Corpuscular Volume 95.4 fl (80-94); Mean Platelet Volume 8.3 fl (7.4-10.4); Monocytes # 0.4 K/mm3 (0.1-1.0); Monocytes % 3.3 % (1.7-9.3); Neutrophils # 8.1 K/mm3 (1.8-7.8); Neutrophils % 77.2 % (37.0-80.0); Platelet Count 184 K/mm3 (142-424); Red Blood Count 3.81 M/mm3 (4.60-6.20); Red Cell Distribution Width 14.2 % (11.5-17.5); White Blood Count 10.5 K/mm3 (4.8-10.8)
[2023-11-09 06:44] LABS: Anion Gap 11.1 mEq/L (5-15); Blood Urea Nitrogen 17 mg/dl (9-20); Calcium 9.2 mg/dl (8.4-10.2); Carbon Dioxide 29 mmol/L (22.0-30.0); Chloride 102 mmol/L (98-107); Creatinine Clearance Estimated 54 mL/min (50-200); Estimated Glomerular Filt Rate 71 ml/min (>60); GFR (African American) 86 ML/MIN (>60); Glucose 92 mg/dl (74-100); Potassium 4.1 mmoL/L (3.5-5.1); Sodium 138 mmol/L (136-145)
[2023-11-09 07:38] VITALS: BP 106/59; PULSE 82; RESP 18; TEMP 37.1; O2SAT 95
[2023-11-09 08:00] VITALS: PULSE 80
[2023-11-09] MEDS: METOPROLOL SUCCINATE XL 25MG TABLET 25 MG PO (09:25)
[2023-11-09] MEDS: HEPARIN SODIUM 5,000 UNIT/ML VIAL 5000 UNIT SQ (09:25)
[2023-11-09] MEDS: LISINOPRIL 10MG TABLET 10 MG PO (09:25)
[2023-11-09] MEDS: CLOPIDOGREL 75MG TAB 75 MG PO (09:25)
[2023-11-09] MEDS: ASPIRIN EC 81MG TABLET 81 MG PO (09:25)
[2023-11-09 09:27] LABS: Alanine Aminotransferase 17 U/L (12-78); Albumin Level 3.9 g/dl (3.5-5.0); Alkaline Phosphatase 56 U/L (38-126); Aspartate Amino Transferase 24 U/L (17-59); Bilirubin,Direct 0.2 mg/dl (0.0-0.4); Bilirubin,Indirect 0.5 mg/dL (0.0-0.9); Bilirubin,Total 0.7 mg/dl (0.2-1.3); Bilirubin,Unconjugated 0.5 mg/dL (0.0-1.1); Chol/HDL Ratio 1.7 (1-3.5); Cholesterol 96 mg/dl (140-200); HDL Cholesterol 55 mg/dl (40-60); Triglycerides 82 mg/dl (30-150); VLDL Cholesterol 16 mg/dL (0-40)
[2023-11-09 09:38] LABS: Direct LDL Cholesterol 41.76 mg/dL (100-129)
--- NOTE | 2023-11-09 11:35 | P.DS_ITS ---
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 Patient initially presented to hospital for pacemaker malfunction. Patient was admitted for observation per cardiology. Patient had granulation denies chest pain nausea vomiting diarrhea constipation dysuria. 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 Patient initially presented to hospital for pacemaker malfunction. Patient was admitted for observation per cardiology. Patient had granulation denies chest pain nausea vomiting diarrhea constipation dysuria. patient underwent intervention by cardiology for Pacemaker lead malfunction, patient heart rate and BP has been stable throughout the hospital stay, patient and mentioned they are ready for discharge, cardiology cleared patient for dischagre and have an outpatient appointment, patient discharged in stable condition Total time spent. 37 mins patient seen and evaluated on the day of discharge. Patient informed about following up with appointments. Patient verbalized understanding for follow-up appointments. The patient and / or the family were informed of the results of tests, a time was given to answer questions, a plan was proposed and they agreed with plan. Medical reconciliation performed. Patient discharged stable condition. Exam Data for Last 24 hours Vital signs and Labs for Last 24 Hours: Temp Pulse Resp BP Pulse Ox O2 Del Method 98.8 F 80 18 106/59 L 95 Room Air 11/09/23 07:38 11/09/23 08:00 11/09/23 07:38 11/09/23 07:38 11/09/23 07:38 11/09/23 09:00 Laboratory Results - last 24 hr 11/09/23 06:07: WBC 10.5, RBC 3.81 L, Hgb 11.8 L, Hct 36.3 L, MCV 95.4 H, MCH 30.9, MCHC 32.4, RDW 14.2, Plt Count 184, MPV 8.3, Neut % (Auto) 77.2, Lymph % (Auto) 17.6, [place] % (Auto) 3.3, Eos % (Auto) 1.5, Baso % (Auto) 0.4, Neut # (Auto) 8.1 H, Lymph # (Auto) 1.9, [place] # (Auto) 0.4, Eos # (Auto) 0.2, Baso # (Auto) 0.0, Sodium 138, Potassium 4.1, Chloride 102, Carbon Dioxide 29, Anion Gap 11.1, BUN 17, Creatinine 1.00, Estimated Creat Clear 54, Estimated GFR 71, Est GFR ( Amer) 86, Glucose 92, Calcium 9.2, Total Bilirubin 0.7, Direct Bilirubin 0.2, Conjugated Bilirubin 0.0, Indirect Bilirubin 0.5, Unconjugated Bilirubin 0.5, AST 24, ALT 17, Alkaline Phosphatase 56, Total Protein 6.0 L, Albumin 3.9, Triglycerides 82, Cholesterol 96 L, LDL Cholesterol Direct 41.76 L, VLDL Cholesterol 16, HDL Cholesterol 55, Cholesterol/HDL Ratio 1.7 I & O for Last 24 hours: Intake & Output 11/06/23 11/07/23 11/08/23 11/09/23 23:59 23:59 23:59 23:59 Intake Total 390 / 510 476 / 476 Output Total 0 / 300 550 / 550 Balance 390 / 210 -74 / -74 Weight 74.843 kg 72.983 kg Constitutional Constitutional: no acute distress *Routine HEENT Exam Head: Present normocephalic Eye: Present EOMI and PERRL ENT: Present mucous membranes moist *Routine Neck Exam Neck: Present supple; Absent lymphadenopathy *Routine Respiratory Exam Respiratory: Present CTA bilaterally *Routine Cardiovascular Exam Cardiovascular: Present RRR *Routine Abdominal Exam Abdominal: Present soft and normoactive bowel sounds; Absent tenderness *Routine Extremities Exam Extremities: Absent cyanosis, clubbing or edema *Routine Skin Exam Skin: Present warm; Absent rash *Routine Neurological Exam Neurological: Present alert and oriented X3 Results Data Completed and Pending Labs on day of discharge: Labs from last 24 hours 11/09/23 06:07 WBC 10.5 RBC 3.81 L Hgb 11.8 L Hct 36.3 L MCV 95.4 H MCH 30.9 MCHC 32.4 RDW 14.2 Plt Count 184 MPV 8.3 Neut % (Auto) 77.2 Lymph % (Auto) 17.6 [place] % (Auto) 3.3 Eos % (Auto) 1.5 Baso % (Auto) 0.4 Neut # (Auto) 8.1 H Lymph # (Auto) 1.9 [place] # (Auto) 0.4 Eos # (Auto) 0.2 Baso # (Auto) 0.0 Sodium 138 Potassium 4.1 Chloride 102 Carbon Dioxide 29 Anion Gap 11.1 BUN 17 Creatinine 1.00 Estimated Creat Clear 54 Estimated GFR 71 Est GFR ( Amer) 86 Glucose 92 Calcium 9.2 Total Bilirubin 0.7 Direct Bilirubin 0.2 Conjugated Bilirubin 0.0 Indirect Bilirubin 0.5 Unconjugated Bilirubin 0.5 AST 24 ALT 17 Alkaline Phosphatase 56 Total Protein 6.0 L Albumin 3.9 Triglycerides 82 Cholesterol 96 L LDL Cholesterol Direct 41.76 L VLDL Cholesterol 16 HDL Cholesterol 55 Cholesterol/HDL Ratio 1.7 DS: Diagnosis Discharge Diagnosis (1) Pacemaker lead malfunction: Status: Acute Code(s): T82.110A - Breakdown (mechanical) of cardiac electrode, initial encounter (2) Status post biventricular pacemaker: Status: Acute Code(s): Z95.0 - Presence of cardiac pacemaker Meds Home Medications and Allergies Home Medications Medication Instructions Recorded Confirmed Type aspirin 81 mg tablet,delayed 81 mg PO DAILY 03/04/20 11/08/23 History release tamsulosin 0.4 mg capsule 0.4 mg PO HS 03/04/20 11/08/23 History dutasteride 0.5 mg capsule 0.5 mg PO DAILY 09/29/23 11/08/23 History metoprolol succinate 25 mg 25 mg PO DAILY #90 tabs 09/29/23 11/08/23 Rx tablet,extended release 24 hr lisinopril 10 mg tablet 10 mg PO DAILY #90 tabs 10/11/23 11/08/23 Rx atorvastatin 40 mg tablet 40 mg PO HS #30 tabs 10/27/23 11/08/23 Rx clopidogrel 75 mg tablet (Plavix) 75 mg PO DAILY #90 tabs 10/27/23 11/08/23 Rx oxycodone-acetaminophen 5 mg-325 1 tab PO Q8HP PRN Moderate Pain 11/08/23 11/08/23 History mg tablet (Percocet) (Scale Score 5-6) New Prescriptions to Start Prescriptions: Allergies Allergy/AdvReac Type Severity Reaction Status Date / Time No Known Allergies Allergy Verified 10/31/23 09:46 Discharge Plan Disposition Patient Disposition: Home, Self-Care Condition: Good Follow up Plan Follow up with: Kobe Owusu APRN [Primary Care Provider] - Enter time for follow up (please call for appointment) Donis Wei MD [Staff Physician] - 11/15/23 2:45 pm Prescriptions/Medication Reconciliation: Continued tamsulosin 0.4 mg capsule 0.4 mg PO HS aspirin 81 mg tablet,delayed release (DR/EC) 81 mg PO DAILY dutasteride 0.5 mg capsule 0.5 mg PO DAILY Patient Comments: TAKE (1) CAPSULE BY MOUTH ONCE A DAY TO HELP WITH ENLARGED PROSTATE metoprolol succinate 25 mg tablet extended release 24 hr 25 mg PO DAILY Qty: 90 1RF lisinopril 10 mg tablet 10 mg PO DAILY Qty: 90 3RF atorvastatin 40 mg Tablet 40 mg PO HS Qty: 30 3RF clopidogrel [Plavix] 75 mg Tablet 75 mg PO DAILY Qty: 90 4RF oxycodone-acetaminophen [Percocet] 5-325 mg tablet 1 tab PO Q8HP PRN (Reason: Moderate Pain (Scale Score 5-6)) Problem Reconciliation Problems Reviewed?: Yes Patient Discharge Instructions ACTIVITY: Ambulate as tolerated DIET: continue same diet Patient Instructions: DI for Pacemaker Insertion, DI for Surgical Site Infection, DI for Post-Surgical Bleeding Providers Primary Care Provider: Kobe Owusu Admit Provider: Bj Badillo Attending Provider: Bj Badillo
[2023-11-09 11:41] VITALS: BP 124/66; PULSE 77; RESP 18; TEMP 37.1; O2SAT 94
[2023-11-09 12:00] VITALS: PULSE 100
--- NOTE | 2023-11-09 12:54 | P.PN_ITS ---
Subjective Subjective Date: 11/09/23 Time: 10:00 Principal diagnosis: s/p BiV PPM lead revision Interval history: This is an 88-year-old gentleman who is status post biventricular pacemaker placement. After initial placement of the biventricular pacemaker he was having significant diaphragm stimulation requiring the LV lead to be turned off because the stimulation was intolerable. The patient was brought back to the hospital to undergo repositioning of the LV lead. The patient underwent the procedure yesterday. He did have a prolonged procedure getting the LV lead repositioned. He did have a perforation of the pericardium that was small. He did have a small pericardial effusion following the procedure. The patient was kept overnight for observation. This morning he denies any chest pain or pressure. He denies any shortness of breath or edema. He denies any fever, chills, nausea, vomiting, diarrhea, PND orthopnea. Exam Data for Last 24 hours Vital signs and Labs for Last 24 Hours: Temp Pulse Resp BP Pulse Ox O2 Del Method 98.8 F 100 H 18 124/66 94 L Room Air 11/09/23 11:41 11/09/23 12:00 11/09/23 11:41 11/09/23 11:41 11/09/23 11:41 11/09/23 11:41 Laboratory Results - last 24 hr 11/09/23 06:07: WBC 10.5, RBC 3.81 L, Hgb 11.8 L, Hct 36.3 L, MCV 95.4 H, MCH 30.9, MCHC 32.4, RDW 14.2, Plt Count 184, MPV 8.3, Neut % (Auto) 77.2, Lymph % (Auto) 17.6, [place] % (Auto) 3.3, Eos % (Auto) 1.5, Baso % (Auto) 0.4, Neut # (Auto) 8.1 H, Lymph # (Auto) 1.9, [place] # (Auto) 0.4, Eos # (Auto) 0.2, Baso # (Auto) 0.0, Sodium 138, Potassium 4.1, Chloride 102, Carbon Dioxide 29, Anion Gap 11.1, BUN 17, Creatinine 1.00, Estimated Creat Clear 54, Estimated GFR 71, Est GFR ( Amer) 86, Glucose 92, Calcium 9.2, Total Bilirubin 0.7, Direct Bilirubin 0.2, Conjugated Bilirubin 0.0, Indirect Bilirubin 0.5, Unconjugated Bilirubin 0.5, AST 24, ALT 17, Alkaline Phosphatase 56, Total Protein 6.0 L, Albumin 3.9, Triglycerides 82, Cholesterol 96 L, LDL Cholesterol Direct 41.76 L, VLDL Cholesterol 16, HDL Cholesterol 55, Cholesterol/HDL Ratio 1.7 I & O for Last 24 hours: Intake & Output 11/06/23 11/07/23 11/08/23 11/09/23 23:59 23:59 23:59 23:59 Intake Total 390 / 510 476 / 476 Output Total 0 / 300 550 / 550 Balance 390 / 210 -74 / -74 Weight 165 lb 160 lb 14.4 oz Constitutional Constitutional: no acute distress and average body habitus *Routine HEENT Exam Head: Present normocephalic and atraumatic ENT: Present mucous membranes moist *Routine Neck Exam Neck: Present supple, full ROM and normal carotid upstroke; Absent JVD, carotid bruit or lymphadenopathy *Routine Respiratory Exam Respiratory: Present CTA bilaterally, normal respiratory effort, able to speak in complete sentences and symmetric chest movement *Routine Cardiovascular Exam Cardiovascular: Present RRR, Normal S1 and Normal S2; Absent murmur or gallop *Routine Abdominal Exam Abdominal: Present soft and normoactive bowel sounds; Absent tenderness, distended or organomegaly *Routine Extremities Exam Extremities: Present full ROM, pulses intact and normal capillary refill; Absent cyanosis, clubbing or edema *Routine Skin Exam Skin: Present intact and warm; Absent erythema *Routine Neurological Exam Neurological: Present alert, oriented X3 and CN II-XII intact; Absent sensory deficit or motor deficit Routine Psychiatric Exam Psychiatric: Present normal affect Progress Note: A&P Assessment and plan (1) Pacemaker lead malfunction: Status: Acute (2) Status post biventricular pacemaker: Status: Acute (3) Mobitz (type) II atrioventricular block: Status: Acute (4) Mitral valve insufficiency: Status: Acute (5) PAF (paroxysmal atrial fibrillation): Status: Acute (6) CAD in [place] artery: Status: Acute (7) Hyperlipidemia: Status: Acute (8) Hypertension: Status: Acute Assessment and Plan Assessment and Plan for All Diagnoses:: Plan: 1. The patient underwent revision of his LV lead to his pacemaker yesterday. He did tolerate this procedure well. However this was a prolonged procedure and he did have a perforation of his pericardium which was small and echocardiogram following the procedure showed a small pericardial effusion. Repeat echocardiogram this morning shows that the pericardial effusion has not changed. 2. His blood pressure is well-controlled. 3. His LDL goal is less than 100. He is on a statin. 4. The patient does have a history of paroxysmal atrial fibrillation. He will be restarted on low-dose metoprolol since he now has a pacemaker in place. 5. Coronary artery disease is present and likely stable. Continue Plavix and aspirin. He did have recent coronary stenting. 6. The patient has had a little bleeding from the pacemaker site. Dr. Wei recommend a sandbag to the pacemaker site for 2 hours and leave the occlusive dressing intact. 7. No further recommendations at this time from a cardiac standpoint. The patient can be discharged home today from a cardiac standpoint after he has had a sandbag on the pacemaker site for 2 hours. He will need to follow-up in c ardiology clinic next week. Thank you for the opportunity to participate in the care of this patient. All recommendations and orders are per Dr. Roth.
--- NOTE | 2023-11-09 15:27 | PC.NURSE ---
late entry: changed pacemaker dsg around 0830 because it was saturated with sanguineous blood. went over discharge instructions with patient and , pacemaker dsg was needing changed again. notified TOMÁS Cuellar for sandbag for 2 hours and instruct patient to leave dsg on till f/u appt.
--- NOTE | 2023-11-10 11:48 | CARE MANAGER ---
Spoke with patient's related to hospital discharge. She states he is doing very well. Denies questions or concerns. Aware of follow up appointment. HAY Patel
== END 2023-11-09 13:48 | disposition home or self-care (01) ==
LOC: 2ND 14:31
PROVIDERS: Internal Medicine; Nurse Practitioner Family; Admitting Provider Internal Medicine; PCP Nurse Practitioner Family; Visit Provider Internal Medicine
DX: Z95.0 Presence of cardiac pacemaker (principal); T82.120A Displacement of cardiac electrode, initial encounter; I44.1 Atrioventricular block, second degree; I34.0 Nonrheumatic mitral (valve) insufficiency; I48.0 Paroxysmal atrial fibrillation; I25.10 Atherosclerotic heart disease of native coronary artery without angina pectoris; E78.5 Hyperlipidemia, unspecified; I11.0 Hypertensive heart disease with heart failure; Z79.899 Other long term (current) drug therapy; I50.22 Chronic systolic (congestive) heart failure; I42.9 Cardiomyopathy, unspecified; Z87.891 Personal history of nicotine dependence; Y83.1 Surgical operation with implant of artificial internal device as the cause of abnormal reaction of the patient, or of later complication, without mention of misadventure at the time of the procedure; C85.90 Non-Hodgkin lymphoma, unspecified, unspecified site
CPT/HCPCS: 33226; 36415; 71045; 80048; 80061; 80076; 85025; 93308; C1725; C1769; G0378; J2704; Q9967

== ENCOUNTER 2024-01-03 14:44 | Outpatient (CLI) | payer MEDICARE, SELFPAY ==
--- NOTE | 2024-01-03 14:50 | CA_ITS ---
APPROVED REPORT EXAM: Limited 2D Echocardiogram Health Education Director: Aranza Pastrana RVT Ht: 5 ft 11 in Wt: 159lbs BSA: 1.91 BP: 152/72 mmHg Indications: LIMITED FOR EF CHECK AND F/U PERICARDIAL EFFUSION,A-FIB,RBBB,CAD,CM,PACER,HTN,HLD,EF OF 40% ON 10/10/23 M-Mode Dimensions RVDd 2.22 cm (0.9-2.6) LA Diam 4.20 cm (1.9-4.0) LVDd 4.83 cm (3.5-5.7) LVDs 4.07 cm (3.5-5.7) IVSd 0.60 cm (0.6-1.1) PWd 0.40 cm (0.6-1.1) EF (Teich) 33.20% FS 15.70% EDV (Teich) 109.10 mL ESV (Teich) 72.90 mL Other Information Study Quality: Fair Conclusion This is a limited TTE to evaluate for pericardial effusion and LVEF. Limited windows were obtained. The left ventricle is normal in size. There is increased LV wall thickness. The septum is asynchronous. There is low normal global LV systolic function. LVEF is 50%. There is no pericardial effusion visualized on the study. Compared to prior study from 09/2023, the LVEF is improved. Electronically signed by : Nadege Roth MD 01/03/2024 22:58:42
== END 2024-01-03 23:59 | disposition home or self-care (01) ==
LOC: RT 14:45
PROVIDERS: PCP Nurse Practitioner Family; Visit Provider Physician Assistant
DX: I34.0 Nonrheumatic mitral (valve) insufficiency (principal); I51.7 Cardiomegaly; R94.30 Abnormal result of cardiovascular function study, unspecified
CPT/HCPCS: 93308

== ENCOUNTER 2024-10-04 14:13 | Outpatient (CLI) | payer MEDICARE, SELFPAY ==
[2024-10-04 14:42] LABS: Basophils % 0.5 % (0.1-2.0); Eosinophils # 0.1 Kmm3 (0.0-0.4); Eosinophils % 1.4 % (0.1-12.0); Hematocrit 34.8 % (42.0-52.0); Hemoglobin 11.6 g/dL (14.1-18.0); Lymphocytes # 2.1 K/mm3 (0.7-4.5); Lymphocytes % 32.3 % (10-50); Mean Corpuscular HGB Conc 33.3 g/dL (31.8-35.4); Mean Corpuscular Hemoglobin 30.8 pg (27.0-31.2); Mean Corpuscular Volume 92.3 fl (80-94); Mean Platelet Volume 10.2 fl (7.4-10.4); Monocytes # 0.4 K/mm3 (0.1-1.0); Monocytes % 6.2 % (1.7-9.3); Neutrophils # 3.8 K/mm3 (1.8-7.8); Neutrophils % 59.3 % (37.0-80.0); Nucleated Red Blood Cells # 0 10^3/uL; Nucleated Red Blood Cells % 0 %; Platelet Count 148 K/mm3 (142-424); Red Blood Count 3.77 M/mm3 (4.60-6.20); Red Cell Distribution Width 13.8 % (11.5-17.5); Red Cell Distribution Width-SD 46.7 fL; White Blood Count 6.4 K/mm3 (4.8-10.8)
[2024-10-04 14:49] LABS: Albumin Level 4.2 g/dl (3.5-5.0); Chloride 106 mmol/L (98-107); Potassium 4.1 mmoL/L (3.5-5.1); Sodium 141 mmol/L (136-145)
[2024-10-04 14:51] LABS: Alanine Aminotransferase 17 U/L (12-78); Anion Gap 10.1 mEq/L (5-15); Aspartate Amino Transferase 29 U/L (17-59); Bilirubin,Unconjugated 0.6 mg/dL (0.0-1.1); Blood Urea Nitrogen 14 mg/dl (9-20); Carbon Dioxide 29 mmol/L (22.0-30.0); Estimated Glomerular Filt Rate 80 ml/min (>60); GFR (African American) 96 ML/MIN (>60); Total Protein,Serum 6.7 g/dl (6.3-8.2)
[2024-10-04 14:52] LABS: Alkaline Phosphatase 54 U/L (38-126); Bilirubin,Indirect 0.5 mg/dL (0.0-0.9); Bilirubin,Total 0.5 mg/dl (0.2-1.3); Calcium 9.1 mg/dl (8.4-10.2); Chol/HDL Ratio 1.9 (1-3.5); Cholesterol 101 mg/dl (140-200); Glucose 89 mg/dl (74-100); HDL Cholesterol 52 mg/dl (40-60); Magnesium 1.6 mg/dl (1.6-2.3); Triglycerides 95 mg/dl (30-150); VLDL Cholesterol 19 mg/dL (0-40)
[2024-10-04 15:09] LABS: Direct LDL Cholesterol < 30.00 mg/dL (100-129)
[2024-10-04 15:20] LABS: Thyroid Stimulating Hormone 3.22 uIU/mL (0.465-4.68)
[2024-10-04 16:08] LABS: Free T4 (Free Thyroxine) 0.79 ng/dl (0.78-2.19)
== END 2024-10-04 23:59 | disposition home or self-care (01) ==
LOC: LAB 14:14
PROVIDERS: PCP Nurse Practitioner Family; Visit Provider Physician Assistant
DX: E78.2 Mixed hyperlipidemia (principal); I10 Essential (primary) hypertension; I25.10 Atherosclerotic heart disease of native coronary artery without angina pectoris
CPT/HCPCS: 36415; 80048; 80061; 80076; 83735; 84439; 84443; 85025

== ENCOUNTER 2025-04-04 14:05 | Outpatient (CLI) | payer MEDICARE, SELFPAY ==
[2025-04-04 14:30] LABS: Hematocrit 35.7 % (42.0-52.0); Hemoglobin 11.5 g/dL (14.1-18.0); Immature Granulocytes % 0.2 %; Mean Corpuscular HGB Conc 32.2 g/dL (31.8-35.4); Mean Corpuscular Hemoglobin 30.0 pg (27.0-31.2); Mean Corpuscular Volume 93.2 fl (80-94); Nucleated Red Blood Cells % 0 %; Platelet Count 165 K/mm3 (142-424); Red Blood Count 3.83 M/mm3 (4.60-6.20); Red Cell Distribution Width-SD 46.5 fL; White Blood Count 6.2 K/mm3 (4.8-10.8)
--- OUTSIDE RECORDS SUMMARY | 2025-04-04 14:47 | XMS_ITS | Continuity of Care Document ---
Author Organization SHAKIRA EDDY [facility] & [place] [facility] NEW Address [address] [place] [address] [place] [address] Care Team Providers Care Conditioner Tumbler Operator Name Role Phone BERE GLEASON Referring Provider [phone] Assessment No assessment recorded. Plan of Treatment Reminders Order Date Submit Date Provider Last Modified By Organization Details Last Modified Time Details Appointments None record ed. Lab None record ed. Referral None record ed. Procedures None record ed. Surgeries None record ed. Imaging None record ed. Medication Orders None record ed. Patient TargetsNo targets recorded. Patient Instructions Encounter Date Encounter Id Patient Instructions Last Modified By Organization Details Last Modified Time 03/20/[id number] I have personall y reviewed the data obtained and entered from the scribe, medical aides teacher or nurse for this patient for this patient encounter. The risks benefit ratio of bilateral myringotomy with tube insertion discussed with patient. Patient to consider. Otherwise continue Flonase. Patient to follow-up as needed. [email or web address] Not available 03/20/2025 14:21:52 Reason for Referral None Reported. Problems Name Problem SNOMED Code Status Onset Date Resolution Date Notes Provider Name and Address Organization Details Recorded Time Malignant lymphoma 514861613 Active Amanda Thomas null, SHAKIRA - [facility] - [place] & [place] 4 14:16:00 Hypertensive disorder 94083886 Active Amandajanell Thomas null, SH[facility]IR[facility] - [facility] - [place] & [place] 4 14:16:00 Benign prostatic hyperplasia with outflow obstruction 736263197 Active 2016 Amandajanell Thomas null, SHAKIRA - [facility] - [place] & [place] 4 14:16:00 Essential hypertension 39406511 Active 2016 AmandaSHAKIRA Martino [place] & [place] 4 14:16:00 Tachycardia 2536722 Active 2018 [facility] & [place] 4 14:16:00 Actinic keratosis 074924027 Active 2023 HSAKIRA Angel [place] & [place] 4 14:16:00 Basal cell carcinoma of face 051004027 Active 2023 SHAKIRA Laird [place] & [place] 4 11:29:07 Problem Notes None recorded. Procedures Surgical History Date Name Laterality Status Provider Name and Address Organization Details Recorded Time 01/24/20 24 excision of lesion of skin completed Soha Mendez [place] & [place] 02/08/2024 09:43:05 01/24/20 24 excision of lesion of skin completed Soha Mendez [place] & [place] 02/08/2024 09:43:27 06/13/19 24 Pacemaker/Defibrill ator completed Erin Mendez [place] & [place] 01/02/2024 10:17:19 06/13/19 24 Cardiovascular Surgery completed Erin Mendez [place] & [place] 01/02/2024 10:17:19 06/13/19 22 Other completed Erin Mendez [place] & [place] 01/02/2024 10:17:19 cardiac pacemaker procedure completed Amanda Mendez [place] & [place] 11/21/2023 14:19:02 cardiac catheterization completed Amanda Mendez [place] & [place] 11/21/2023 14:19:24 Hernia Repair completed Amanda Mendez [place] & [place] 11/21/2023 14:19:30 Imaging Results None recorded. Procedure Notes None recorded. Medical Equipment None Reported. Allergies No known drug allergies Medications Name Sig Start Date Stop Date Status Note LastModified by Organization Details LastModified Time atorvastati n 40 mg tablet TAKE ONE TABLET BY MOUTH AT BEDTIME active Not Available Not Available No t Available atorvastati n 20 mg tablet 07/23 completed Not Available Not Available Not Available azithromyci n 250 mg tablet TAKE 2 TABLETS (500 MG) BY ORAL ROUTE ONCE DAILY FOR 1 DAY THEN 1 TABLET (250 MG) BY ORAL ROUTE ONCE DAILY FOR 4 DAYS 11/08 completed Not Available Not Available Not Available metoprolol succinate ER 50 mg tablet,exte nded release 24 hr 11/20 completed Not Available Not Available Not Available hydrocodone 5 mg-acetamin ophen 325 mg tablet 07/23 completed Not Available Not Available Not Available fluorouraci l 5 % topical cream APPLY A SUFFICIEN T AMOUNT TO COVER THE LESIONS IN THE AFFECTED AREA(S) BY TOPICAL ROUTE 2 TIMES PER DAY 12/25 completed Not Available Not Available Not Available clopidogrel 75 mg tablet TAKE 1 TABLET BY MOUTH ONCE A DAY. active Not Available Not Available No t Available ciprofloxac in 500 mg tablet 11/08 completed Not Available Not Available Not Available oxycodone-a cetaminophe n 5 mg-325 mg tablet TAKE (1) TABLET BY MOUTH EVERY EIGHT HOURS NEEDED FOR PAIN 11/20 completed Not Available Not Available Not Available tamsulosin 0.4 mg capsule TAKE 1 CAPSULE BY MOUTH AT BEDTIME TO HELP WITH VOIDING. active Not Available Not Available No t Available pantoprazol e 40 mg tablet,desean yed release TAKE 1 TABLET BY MOUTH ONCE DAILY. active Not Available Not Available No t Available lisinopril 10 mg tablet TAKE 1 TABLET BY MOUTH ONCE A DAY. 02/06 completed Not Available Not Available Not Available aspirin 81 mg chewable tablet Chew 1 tablet every day by oral route. 07/21 completed Not Available Not Available Not Available metoprolol succinate ER 25 mg tablet,exte nded release 24 hr TAKE 1 TABLET BY MOUTH ONCE A DAY. active Not Available Not Available No t Available levofloxaci n 500 mg tablet TAKE 1 TABLET BY MOUTH 1-2 HOURS BEFORE PROSTATE BIPSY AND THEN 1 TABLET THE NEXT MORNING 07/25 completed Not Available Not Available Not Available fluticasone propionate 50 mcg/actuati on nasal spray,suspe nsion INSTILL 1 SPRAY IN EACH NOSTRIL ONCE DAILY. active Not Available Not Available No t Available doxycycline hyclate 100 mg tablet Take 1 tablet twice a day by oral route. 11/08 completed Not Available Not Available Not Available dutasteride 0.5 mg capsule TAKE (1) CAPSULE BY MOUTH ONCE A DAY TO HELP WITH ENLARGED PROSTATE. active Not Available Not Available No t Available Eliquis 5 mg tablet Take 1 tablet twice a day by oral route. active Not Available Not Available No t Available Afluria Qd 2018- (36 mos up)(PF)60 mcg (15 mcg x4)/0.5 mL IM syringe 01/22 completed Not Available Not Available Not Available aspirin 81 mg capsule Take 1 capsule every day by oral route. active Not Available Not Available No t Available Vitals None Recorded Social History Question Answer Notes LastModified by Portal Profes ion Details LastModified Time Tobacco Smoking Status Former Smoker Amanda [facility], [place] - [facility] - [place] & [place] 11/21/2023 14:16:24 Do You Have An Advance Directive? Yes Information not available 01/02/2024 Are You Blind Or Do You Have Difficulty Seeing? No Information not available 01/02/2024 What Is Your Level Of Caffeine Consumption? Occasional [email or web address] Information not available 02/08/2024 What Type Of Diet Are You Following? REGULAR [email or web address] Information not available 02/08/2024 When Did You Quit Smoking? 11-15yearssince lastcigarette [email or web address] Information not available 02/08/2024 Are You Passively Exposed To Smoke? No Information not available 01/02/2024 Sex: Male Functional Status Question Answer Note LastModified by Organizat ion Details LastModified Time Do you use any illicit or recreational drugs? No Information not available 01/02/2024 Do you or have you ever used any other forms of tobacco or nicotine? No [email or web address] Information not available 02/08/2024 What is your level of alcohol consumption? None Information not available 01/02/2024 What is your exercise level? Occasional Information not available 01/02/2024 Mental Status Question Answer Note LastModified by Organization D etails LastModified Time Do you feel stressed (tense, restless, nervous, or anxious, or unable to sleep at night)? [id number] Information not available 01/02/2024 Family History Nothing Reported. Medical History Condition Response Other Y Cancer Y Hypertension Y Immunizations Vaccine Type Date Status Note Provider Nam e and Address Organization Details Recorded Time Influenza, high-dose, quadrivalent, PF 03/27/2021 completed Amanda benjamin, SHAKIRA - [facility] & [place] 11/21/2023 14:16:00 Influenza, high-dose, quadrivalent, PF 04/11/2020 completed Amanda Thomas cassidy, SHAKIRA - [facility] - [place] & [place] 11/21/2023 14:16:00 Past Encounters Encounter ID Performer Location Encounter Start Date Encounter Closed Date Diagnosis/Indication Diagnosis SNOMED-CT Code Diagnosis ICD10 Code Diagnosis IMO Codes Diagnosis Note [id number] Micky Campbell MD [facility] [address] [id number] 03/20/2025 13:44:25 03/20/2025 14:24:03 Dysfunction of bilateral eustachian tubes 6112128795 139351 H69.93 [id number] Health Concerns Section Related Observation LastModified by Organization Detai ls LastModified Time None Recorded Concern Status LastModified by Organization Details LastModified Time None Recorded Payers Encounter Date Sequence Insurance Name Policy Number Policy Chowdhury Covered Member ID Chowdhury Member ID Guarantor Name 03/20/2025 1 [employer] (MEDICARE REPLACEMENT/ ADVANTAGE - PPO) [id number] Tano Michelle [id number] Tano Michelle Notes Date Note Type Note Provider Name and Address Organization Details Recorded Time 03/20/2025 text/html Patient presents in follow-up. States his echo sound in ear. Micky Campbell MD [address] [place] [address],[address], [place], [address], [facility] - [facility] - [place] & [place] 03/20/2025 14:22:33
--- OUTSIDE RECORDS SUMMARY | 2025-04-04 14:47 | XMS_ITS | Continuity of Care Document ---
Author Organization SHAKIRA EDDY [facility] & [place], [facility] NEW Address [address] [place] [address] Care Team Providers Care Chemical Equipment Controller Name Role Phone BERE GLEASON Referring Provider Assessment No assessment recorded. Plan of Treatment Reminders Order Date Submit Date Provider Last Modified By Organization Details Last Modified Time Details Appointments None recorded. Lab None recorded. Referral None recorded. Procedures None recorded. Surgeries None recorded. Imaging None recorded. Medication Orders fluticasone propionate 50 mcg/actuati on nasal spray,suspe nsion 2024 0[address] [facility], [address] [place], [address], 15:36:15 Patient TargetsNo targets recorded. Patient Instructions Encounter Date Encounter Id Patient Instructions Last Modified By Organization Details Last Modified Time 02/06/2025 [id number] I have personall y reviewed the data obtained and entered from the scribe, medical claims assistant or nurse for this patient for this patient encounter. Discussed with the patient. Patient to begin Flonase. Follow-up in 4-6 weeks. [email or web address] Not available 02/06/2025 13:44:00 Reason for Referral None Reported. Problems Name Problem SNOMED Code Status Onset Date Resolution Date Notes Provider Name and Address Organization Details Recorded Time Malignant lymphoma 868930145 Active Amanda Thomas cassidy, SHAKIRA - [facility] - [place] & [place] 4 14:16:00 Hypertensive disorder 69206524 Active Amanda Thomas cassidy, SHAKIRA - [facility] - [place] & [place] 4 14:16:00 Benign prostatic hyperplasia with outflow obstruction 556592475 Active 2016 SHAKIRA Angel - [place] & [place] 4 14:16:00 Essential hypertension 68093622 Active 2016 SHAKIRA Angel - [place] & [place] 4 14:16:00 Tachycardia 6618656 Active 2018 [facility] [place] 4 14:16:00 Actinic keratosis 406553943 Active 2023 SHAKIRA Angel - [place] & [place] 4 14:16:00 Basal cell carcinoma of face 264980460 Active 2023 SHAKIRA Laird [place] & [place] 4 11:29:07 Problem Notes None recorded. Procedures Surgical History Date Name Laterality Status Provider Name and Address Organization Details Recorded Time 01/24/20 24 excision of lesion of skin completed Soha EDDY [facility] & [place] 02/08/2024 09:43:05 01/24/20 24 excision of lesion of skin completed Soha Mendez [place] & [place] 02/08/2024 09:43:27 06/13/19 24 Pacemaker/Defibrill ator completed Erin EDDY [facility] & [place] 01/02/2024 10:17:19 06/13/19 24 Cardiovascular Surgery completed Erin EDDY [facility] & [place] 01/02/2024 10:17:19 06/13/19 22 Other completed Erin EDDY [facility] & [place] 01/02/2024 10:17:19 cardiac pacemaker procedure completed Amanda Mendez [place] & [place] 11/21/2023 14:19:02 cardiac catheterization completed Amanda Mendez [place] & [place] 11/21/2023 14:19:24 Hernia Repair completed Amanda Mendez [place] & [place] 11/21/2023 14:19:30 Imaging Results None recorded. Procedure [...] Not Available No t Available Afluria Qd 2019-20 (36 mos up)(PF)60 mcg (15 mcg x4)/0.5 mL IM syringe 01/22 completed Not Available Not Available Not Available aspirin 81 mg capsule Take 1 capsule every day by oral route. active Not Available Not Available No t Available Vitals Date Recorded Body height Body mass index (BMI) Body weight Provider Name and Address Organization Details Last Updated DateTime 02/06/2025 180.34 cm 23 kg/m2 73381.74 g Shashank Bright [facility] & [place] 02/06/2025 13:24:54 Social History Question Answer Notes LastModified by SDIizat ion Details LastModified Time Tobacco Smoking Status Former Smoker Amanda Thomas [facility] & [place] 11/21/2023 14:16:24 Do You Have An Advance Directive? Yes Information not available 01/02/2024 Are You Blind Or Do You Have Difficulty Seeing? No Information not available 01/02/2024 What Is Your Level Of Caffeine Consumption? Occasional [email or web address] Information not available 02/08/2024 What Type Of Diet Are You Following? REGULAR [email or web address] Information not available 02/08/2024 When Did You Quit Smoking? 11-15yearssince lastcigarette [email or web address] Information not available 02/08/2024 Are You Passively Exposed To Smoke? No Information not available 01/02/2024 Sex: Male Functional Status Question Answer Note LastModified by Organizat ion Details LastModified Time Do you use any illicit or recreational drugs? No Information not available 01/02/2024 Do you or have you ever used any other forms of tobacco or nicotine? No [email or web address] Information not available 02/08/2024 What is your level of alcohol consumption? None Information not available 01/02/2024 What is your exercise level? Occasional Information not available 01/02/2024 Mental Status Question Answer Note LastModified by Organization D etails LastModified Time Do you feel stressed (tense, restless, nervous, or anxious, or unable to sleep at night)? [id number] [email or web address] Information not available 01/02/2024 Family History Nothing Reported. Medical History Condition Response Other Y Cancer Y Hypertension Y Immunizations Vaccine Type Date Status Note Provider Nam e and Address Organization Details Recorded Time Influenza, high-dose, quadrivalent, PF 03/27/2021 completed Amanda benjamin, SHAKIRA - [facility] & [place] 11/21/2023 14:16:00 Influenza, high-dose, quadrivalent, PF 04/11/2020 completed Amanda benjamin, SHAKIRA - [facility] & [place] 11/21/2023 14:16:00 Past Encounters Encounter ID Performer Location Encounter Start Date Encounter Closed Date Diagnosis/Indication Diagnosis SNOMED-CT Code Diagnosis ICD10 Code Diagnosis IMO Codes Diagnosis Note [id number] Micky Campbell MD [facility] [address] [phone] 02/06/2025 12:45:08 02/06/2025 13:42:36 Dysfunction of eustachian tube 00846667 H69.90 [id number] Health Concerns Section Related Observation LastModified by Organization Detai ls LastModified Time None Recorded Concern Status LastModified by Organization Details LastModified Time None Recorded Payers Encounter Date Sequence Insurance Name Policy Number Policy Chowdhury Covered Member ID Chowdhury Member ID Guarantor Name 02/06/2025 1 [employer] (MEDICARE REPLACEMENT/ ADVANTAGE - PPO) [id number] Tano Michelle [id number] Tano Michelle Notes Date Note Type Note Provider Name and Address Organization Details Recorded Time 02/06/2025 text/html Patient presents for evaluation and management of sensation in ear for past several months patient states ears echoes in head. Micky Campbell MD [address] [place] [address],[address], [place], [address] & [place] 02/06/2025 13:44:39
--- OUTSIDE RECORDS SUMMARY | 2025-04-04 14:47 | XMS_ITS | Data Portability ---
Author Organization [facility] Address [address] [place] [address] Care Team Providers Care Mechanism Assembler Name Role Phone BERE GLEASON Referring Provider [phone] Assessment No assessment recorded. Plan of Treatment Reminders Order Date Submit Date Provider Last Modified By Organization Details Last Modified Time Details Appointments None recorded. Lab CBC w/ auto diff [address] (Registration ), [place], [address], 4 18:51:55 CMP, serum or plasma 2023 024 [email or web address] (Registration ), [place], [address], 4 18:51:55 Referral None recorded. Procedures biopsy, skin, punch (PROC) 2023 024 Not available 4 08:31:32 Surgeries excision, malignant lesion including margins, face, ears, eyelids, nose, lips (SURG) 2023 024 Not available 4 09:33:29 Imaging electrocard iogram 2023 024 [email or web address] [facility] (Registration ), [address] [place], [address], 4 08:11:12 Medication Orders fluticasone propionate 50 mcg/actuati on nasal spray,suspe nsion 2024 025 [facility], [address] [place], [address], 15:36:15 Patient TargetsNo targets recorded. Patient Instructions Encounter Date Encounter Id Patient Instructions Last Modified By Organization Details Last Modified Time 01/02/2024 [id number] cardiac clearance* Not available 01/09/2024 08:31:40 02/08/2024 [id number] RTO p.r.n. [email or web address] Not available 01/12 09:54:30 Patient seen by physician assistant spa manager. I have reviewed the patient's medical record, the medical decision making and treatment plan. [email or web address] Not available 02/08/2024 09:54:32 02/06/2025 [id number] I have personall y reviewed the data obtained and entered from the scribe, hospital medical assistant or nurse for this patient for this patient encounter. Discussed with the patient. Patient to begin Flonase. Follow-up in 4-6 weeks. Not available 02/06/2025 13:44:00 03/20/2025 [id number] I have personall y reviewed the data obtained and entered from the scribe, hospital medical assistant or nurse for this patient for this patient encounter. The risks benefit ratio of bilateral myringotomy with tube insertion discussed with patient. Patient to consider. Otherwise continue Flonase. Patient to follow-up as needed. Not available 03/20/2025 14:21:52 Reason for Referral None Reported. Results Created Date Observation Date Name Description Value Unit Range Abnormal Flag Note LastModifiedBy Organization Detail LastModifiedTime 01/02/20 24 01/02/2024 CBC W/AUT O DIFFE RENTI AL note SEE NOTE Order ing Provi teddy: Karen Alvarez MD Not Available [address] , [place], [address], 01/02/2024 12:34:56 01/02/20 24 01/02/2024 CBC W/AUT O DIFFE RENTI AL white blood cell 5.9 10e3/ uL 4.5-13 .0 normal Not Available [address] , [place], [address], 01/02/2024 12:34:56 01/02/20 24 01/02/2024 CBC W/AUT O DIFFE RENTI AL red blood cell 4.16 10e6/ uL 4.10-5 .70 normal Not Available [address] [place], [place], [address], 01/02/2024 12:34:56 01/02/20 24 01/02/2024 CBC W/AUT O DIFFE RENTI AL hemoglobin 12.9 g/dL 12.0-1 6.9 normal Not Available [address] , [place], [address], 01/02/2024 12:34:56 01/02/20 24 01/02/2024 CBC W/AUT O DIFFE RENTI AL hematocrit 39.0 % 36.0-4 9.0 normal Not Available [address] , [place], [address], 01/02/2024 12:34:56 01/02/20 24 01/02/2024 CBC W/AUT O DIFFE RENTI AL mean cell volume 94 fL 78.0-9 8.0 normal Not Available [address] [place], [place], [address], 01/02/2024 12:34:56 01/02/20 24 01/02/2024 CBC W/AUT O DIFFE RENTI AL mean cell HGB 31.0 pg 25.0-3 5.0 normal Not Available [address] [place], [place], [address], 01/02/2024 12:34:56 01/02/20 24 01/02/2024 CBC W/AUT O DIFFE RENTI AL mean cell HGB concentratio n 33.1 g/dL 31.0-3 6.0 normal Not Available [address] , [place], [address], 01/02/2024 12:34:56 01/02/20 24 01/02/2024 CBC W/AUT O DIFFE RENTI AL red cell distribution width 13.7 % 11.0-1 5.0 normal Not Available [address] [place], [place], [address], 01/02/2024 12:34:56 01/02/20 24 01/02/2024 CBC W/AUT O DIFFE RENTI AL platelet count 160 10e3/ uL 150-40 0 normal Not Available [address] , [place], [address], 01/02/2024 12:34:56 01/02/20 24 01/02/2024 CBC W/AUT O DIFFE RENTI AL immature granulocyte % 0 0-1 normal Not Available [address] [place], [place], [address], 01/02/2024 12:34:56 01/02/20 24 01/02/2024 CBC W/AUT O DIFFE RENTI AL neutrophil % 66 % 35-75 normal Not Available [address] [place], [place], [address], 01/02/2024 12:34:56 01/02/20 24 01/02/2024 CBC W/AUT O DIFFE RENTI AL lymphocyte % 25 % 10-50 normal Not Available [address] [place], [place], [address], 01/02/2024 12:34:56 01/02/20 24 01/02/2024 CBC W/AUT O DIFFE RENTI AL monocyte % 4 % 0-15 normal Not Available [address] [place], [place], [address], 01/02/2024 12:34:56 01/02/20 24 01/02/2024 CBC W/AUT O DIFFE RENTI AL eosinophil % 4 % 0-5 normal Not Available [address] [place], [place], [address], 01/02/2024 12:34:56 01/02/20 24 01/02/2024 CBC W/AUT O DIFFE RENTI AL basophil % 1 % 0-5 normal Not Available [address] [place], [place], [address], 01/02/2024 12:34:56 01/02/20 24 01/02/2024 CBC W/AUT O DIFFE RENTI AL immature granulocyte # 0.01 x1000 /uL 0-0.05 normal Not Available [address] [place], [place], [address], 01/02/2024 12:34:56 01/02/20 24 01/02/2024 CBC W/AUT O DIFFE RENTI AL neutrophil # 3.87 x1000 /uL 1.50-8 .00 normal Not Available [address] [place], [place], [address], 01/02/2024 12:34:56 01/02/20 24 01/02/2024 CBC W/AUT O DIFFE RENTI AL lymphocyte # 1.48 x1000 /uL 1.20-5 .20 normal Not Available [address] [place], [place], [address], 01/02/2024 12:34:56 01/02/20 24 01/02/2024 CBC W/AUT O DIFFE RENTI AL monocyte # 0.26 x1000 /uL 0.30-0 .90 low Not Available [address] , [place], [address], 01/02/2024 12:34:56 01/02/20 24 01/02/2024 CBC W/AUT O DIFFE RENTI AL eosinophil # 0.24 x1000 /uL 0.00-0 .50 normal Not Available [address] , [place], [address], 01/02/2024 12:34:56 01/02/20 24 01/02/2024 CBC W/AUT O DIFFE RENTI AL basophil # 0.03 x1000 /uL 0.00-0 .30 normal Not Available [address] , [place], [address], 01/02/2024 12:34:56 01/02/20 24 01/02/2024 CBC W/AUT O DIFFE RENTI AL NRBC automated 0.0 /100_ WBC Not Available [address] , [place], [address], 01/02/2024 12:34:56 01/02/20 24 01/02/2024 CBC W/AUT O DIFFE RENTI AL performing lab SEE NOTE [facility] [address] [place] [address] Not Available [address] , [place], [address], 01/02/2024 12:34:56 01/02/20 24 01/02/2024 COMP METAB OLIC PANEL note SEE NOTE Order ing Provi teddy: Karen Alvarez MD Not Available [address] , [place], [address], 01/02/2024 12:49:25 01/02/20 24 01/02/2024 COMP METAB OLIC PANEL sodium 144 mmol/ L 136-14 5 normal Not Available [address] , [place], [address], 01/02/2024 12:49:25 01/02/20 24 01/02/2024 COMP METAB OLIC PANEL potassium 4.1 mmol/ L 3.5-5. 1 normal Not Available [address] [place], [place], [address], 01/02/2024 12:49:25 01/02/20 24 01/02/2024 COMP METAB OLIC PANEL chloride 104 mmol/ L 98-107 normal Not Available [address] [place], [place], [address], 01/02/2024 12:49:25 01/02/20 24 01/02/2024 COMP METAB OLIC PANEL carbon dioxide 32 mmol/ L 24-33 normal Not Available [address] [place], [place], [address], 01/02/2024 12:49:25 01/02/20 24 01/02/2024 COMP METAB OLIC PANEL anion gap 12.1 mmol/ L 10-20 normal Not Available [address] [place], [address], 01/02/2024 12:49:25 01/02/20 24 01/02/2024 COMP METAB OLIC PANEL glucose 103 mg/dL 70-99 high Not Available [address] [place], [address], 01/02/2024 12:49:25 01/02/20 24 01/02/2024 COMP METAB OLIC PANEL blood urea nitrogen 12 mg/dL 7-18 normal Not Available [address] [place], [address], 01/02/2024 12:49:25 01/02/20 24 01/02/2024 COMP METAB OLIC PANEL creatinine 0.94 mg/dL 0.70-1 .30 normal Not Available [address] [place], [address], 01/02/2024 12:49:25 01/02/20 24 01/02/2024 COMP METAB OLIC PANEL GFR (estimated) 78 mL/mi n >60 normal [IM MELISA NT]: The 2020 CKD-E PI equat ion is now the recom tejas d stand thai. This versi on does not inclu de race, as do the 2008 and 2011 CKD-E PI creat inine and creat inine -cyst atin C equat ions. Plemusa e note that the eGFR now repor ara is gener ated by the new 2020 CKD-E PI equat ion, which decre ases the eGFR for black s by up to 10% and incre ases the eGFR for non-b lacks by up to 10% in maria luisa rison to the old equat ion. To maria luisa re a legac y eGFR to a curre nt value , a 2008 CKD-E PI calcu lator is easil y searc hable on the inter net. Calcu lated GFR: This calcu lated GFR is advoc ated by the Natio nal Kidne y Found ation to be used as an indic ator of Chron ic Kidne y Disea se (CKD) . 5 Stage s of Chron ic Kidne y Disea se. Stage 1 90 mL/mi n or more Healt hy kidne ys or Kidne y damag e with sea l or high GFR detai ls Stage 2 60 to 89 mL/mi n Kidne y damag e and mild decre ase in GFR detai ls Stage 3 30 to 59 mL/mi n Moder ate decre ase in GFR detai ls Stage 4 15 to 29 mL/mi n Sever e decre ase in GFR detai ls Stage 5 Less than 15 mL/mi n On dialy sis or Kidne y failu re Patie nt's clini filemon statu s must be consi dered for the care of your patie nt. Not Available [address] , [place], [address], 01/02/2024 12:49:25 01/02/20 24 01/02/2024 COMP METAB OLIC PANEL BUN/creatini ne ratio 12 -20 normal Not Available [address] , [place], [address], 01/02/2024 12:49:25 01/02/20 24 01/02/2024 COMP METAB OLIC PANEL total protein 7.3 g/dL 6.4-8. 2 normal Not Available [address] , [place], [address], 01/02/2024 12:49:25 01/02/20 24 01/02/2024 COMP METAB OLIC PANEL albumin 4.5 g/dL 3.4-5. 0 normal Not Available [address] , [place], [address], 01/02/2024 12:49:25 01/02/20 24 01/02/2024 COMP METAB OLIC PANEL globulin 2.8 g/dL 1.5-4. 0 normal Not Available [address] [place], [place], [address], 01/02/2024 12:49:25 01/02/20 24 01/02/2024 COMP METAB OLIC PANEL albumin/glob ulin ratio 1.6 0.5-2. 0 normal Not Available [address] , [place], [address], 01/02/2024 12:49:25 01/02/20 24 01/02/2024 COMP METAB OLIC PANEL calcium 9.3 mg/dL 8.5-10 .1 normal Not Available [address] , [place], [address], 01/02/2024 12:49:25 01/02/20 24 01/02/2024 COMP METAB OLIC PANEL osmolality serum calculated 286 mOsm/ kg 272-28 8 normal Not Available [address] , [place], [address], 01/02/2024 12:49:25 01/02/20 24 01/02/2024 COMP METAB OLIC PANEL bilirubin total 0.7 mg/dL 0.2-1. 0 normal Use of this assay is not recom tejas d for patie nts under going treat ment with Eltro mbopa g due to the poten tial for false ly eleva ara resul ts. Not Available [address] , [place], [address], 01/02/2024 12:49:25 01/02/20 24 01/02/2024 COMP METAB OLIC PANEL SGOT/AST 21 U/L 15-37 normal Not Available [address] [place], [address], 01/02/2024 12:49:25 01/02/20 24 01/02/2024 COMP METAB OLIC PANEL SGPT/ALT 28 U/L 16-63 normal Not Available [address] , [place], [address], 01/02/2024 12:49:25 01/02/20 24 01/02/2024 COMP METAB OLIC PANEL alkaline phosphatase total 81 U/L 46-116 normal Not Available [address] , [place], [address], 01/02/2024 12:49:25 01/02/20 24 01/02/2024 COMP METAB OLIC PANEL performing lab SEE NOTE - [facility] [address] [facility] [address] Not Available [address] [place], [address], 01/02/2024 12:49:25 01/24/20 24 01/24/2024 GLUCO SE POINT OF CARE note See Note Order ing Provi teddy: Karen Alvarez MD Not Available [address] , [place], [address], 01/24/2024 08:09:57 01/24/20 24 01/24/2024 GLUCO SE POINT OF CARE glucose point of care 102 mg/dL 70-99 high Not Available [address] [place], [address], 01/24/2024 08:09:57 01/24/20 24 01/24/2024 GLUCO SE POINT OF CARE performing lab see note [facility] - [facility] [place] [address] Not Available [address] [place], [address], 01/24/2024 08:09:57 01/02/20 24 01/02/2024 elect laci gamino am No observ ation record ed. [email or web address] Not Available 2023 08:48:45 Result Notes None recorded. Problems Name Problem SNOMED Code Status Onset Date Resolution Date Notes Provider Name and Address Organization Details Recorded Time Malignant lymphoma 941507691 Active Amanda Thomas null, [place] - [facility] [place] [facility] [place] 4 14:16:00 Hypertensive disorder 97547713 Active Amanda Thomas null, [place] [facility] [place] [facility] [place] 4 14:16:00 Benign prostatic hyperplasia with outflow obstruction 135746251 Active 2016 Amandajanell Thomas null, [place] - [facility] [place] [facility] [place] 4 14:16:00 Essential hypertension 22295687 Active 2016 Amanda [place] null, [place] [facility] [place] [facility] [place] 4 14:16:00 Tachycardia 0734552 Active 2018 Amanda [place] null, [place] [facility] [place] [facility] [place] 4 14:16:00 Actinic keratosis 980942310 Active 2023 Amanda [place] null[place] [facility] [place] [facility] [place] 4 14:16:00 Basal cell carcinoma of face 466691269 Active 2023 Erin Klein null, [place] - [facility] [place] [facility] [place] 11:29:07 Problem Notes None recorded. Procedures Surgical History Date Name Laterality Status Provider Name and Address Organization Details Recorded Time 01/24/20 24 excision of lesion of skin completed Soha Mendez [place] [facility] [place] 02/08/2024 09:43:05 01/24/20 24 excision of lesion of skin completed Soha EDDY [facility] [place] 02/08/2024 09:43:27 06/13/19 24 Pacemaker/Defibrill ator completed Erin EDDY [facility] [place] 01/02/2024 10:17:19 06/13/19 24 Cardiovascular Surgery completed Erin EDDY [facility] [place] 01/02/2024 10:17:19 06/13/19 22 Other completed Erin EDDY [facility] [place] 01/02/2024 10:17:19 cardiac pacemaker procedure completed Amanda EDDY [facility] [place] 11/21/2023 14:19:02 cardiac catheterization completed Amanda EDDY [facility] [place] 11/21/2023 14:19:24 Hernia Repair completed Amanda EDDY [facility] [place] 11/21/2023 14:19:30 Imaging Results None recorded. Procedure [...] Not Available No t Available Afluria Qd 2019- (36 mos up)(PF)60 mcg (15 mcg x4)/0.5 mL IM syringe 01/22 completed Not Available Not Available Not Available aspirin 81 mg capsule Take 1 capsule every day by oral route. active Not Available Not Available No t Available Vitals Date Recorded Body height Body mass index (BMI) Body weight Heart rate Oxygen saturation Oxygen saturation in Arterial blood by Pulse oximetry Body temperature Systolic And Diastolic Provider Name and Address Organization Details Last Updated DateTime 4 180.34 cm 22.5 kg/m2 78563.3 7 g 71 /min 98 % 98 % 98 [degF] 129/59 mm[Hg] Amadna Thomas [facility] [place] 4 14:26:33 Date Recorded Body height Body mass index (BMI) Body weight Oxygen saturation Oxygen saturation in Arterial blood by Pulse oximetry Body temperature Heart rate Systolic And Diastolic Provider Name and Address Organization Details Last Updated DateTime 4 180.34 cm 22.1 kg/m2 43849.3 1 g 98 % 98 % 98.2 [degF] 66 /min 124/68 mm[Hg] Erin Klein [facility] [place] 4 10:16:42 Date Recorded Body height Body mass index (BMI) Body weight Provider Name and Address Organization Details Last Updated DateTime 02/06/2025 180.34 cm 23 kg/m2 19594.74 g Shashankskylar QuevedoDeangelo [facility] [place] 02/06/2025 13:24:54 Date Recorded Body height Body mass index (BMI) Body weight Oxygen saturation Oxygen saturation in Arterial blood by Pulse oximetry Body temperature Heart rate Respiratory rate Systolic And Diastolic Provider Name and Address Organization Details Last Updated DateTime 4 180.34 cm 21.8 kg/m2 11951.8 5 g 98 % 98 % 97.3 [degF] 66 /min 16 /min 136/63 mm[Hg] Soha Bryan [facility] [place] 4 09:40:27 Social History Question Answer Notes LastModified by Organizat ion Details LastModified Time Tobacco Smoking Status Former Smoker Amanda Thomas cassidy [facility] [place] 11/21/2023 14:16:24 Do You Have An Advance Directive? Yes Information not available 01/02/2024 Are You Blind Or Do You Have Difficulty Seeing? No Information not available 01/02/2024 What Is Your Level Of Caffeine Consumption? Occasional [email or web address] Information not available 02/08/2024 What Type Of Diet Are You Following? REGULAR [email or web address] Information not available 02/08/2024 When Did You Quit Smoking? 11-15yearssince lastcigarette [email or web address] Information not available 02/08/2024 Are You Passively Exposed To Smoke? No Information not available 01/02/2024 Sex: Male Functional Status Question Answer Note LastModified by Organizat ion Details LastModified Time Do you use any illicit or recreational drugs? No Information not available 01/02/2024 Do you or have you ever used any other forms of tobacco or nicotine? No [email or web address] Information not available 02/08/2024 What is your level of alcohol consumption? None Information not available 01/02/2024 What is your exercise level? Occasional Information not available 01/02/2024 Mental Status Question Answer Note LastModified by Organization D etails LastModified Time Do you feel stressed (tense, restless, nervous, or anxious, or unable to sleep at night)? [id number] Information not available 01/02/2024 Family History Nothing Reported. Medical History Condition Response Other Y Cancer Y Hypertension Y Immunizations Vaccine Type Date Status Note Provider Nam e and Address Organization Details Recorded Time Influenza, high-dose, quadrivalent, PF 03/27/2021 completed SHAKIRA Angel - [facility] [place] 11/21/2023 14:16:00 Influenza, high-dose, quadrivalent, PF 04/11/2020 completed SHAKIRA Angel - [facility] [place] 11/21/2023 14:16:00 Past Encounters Encounter ID Performer Location Encounter Start Date Encounter Closed Date Diagnosis/Indication Diagnosis SNOMED-CT Code Diagnosis ICD10 Code Diagnosis IMO Codes Diagnosis Note [id number] JACQUELYN Del Valle [facility] [address] [place] [id number] 8 02/24/2022 09:58:01 02/24/2022 10:37:25 Postoperative visit 444572605 Z09 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 Will have the patient return to the office in 3-4 weeks for follow-up and treatment. History of malignant neoplasm of skin 713001508 Z85.180 [id number] MD ALICE Kerns General Surgery [address] [place] [address] 8 01/02/2024 09:24:35 01/02/2024 11:36:59 Basal cell carcinoma of face 279905501 C44.319 Excision of larger lesion with full-thick ness skin graft and excision of the other lesions. [id number] JACQUELYN Del Valle Mike [place] [id number] 8 02/08/2024 09:22:09 02/08/2024 09:42:51 Postoperative visit 337953964 Z09 SP excision Basal cell carcinoma right hinduism With full-thick ness skin graft 01/24/2024 . [id number] Micky Campbell MD [address] [place] [address] [place] [address] 8 02/06/2025 12:45:08 02/06/2025 13:42:36 Dysfunction of eustachian tube 95048270 H69.90 [id number] Micky Campbell MD [address] [place] [address] [place], [place] [address] 8 03/20/2025 13:44:25 03/20/2025 14:24:03 Dysfunction of bilateral eustachian tubes 1810556363 109575 H69.93 [id number] Health Concerns Section Related Observation LastModified by Organization Detai ls LastModified Time None Recorded Concern Status LastModified by Organization Details LastModified Time None Recorded Advance Directives Directive Y: Payers Insurance Date Sequence Insurance Name Policy Number Policy Chowdhury Covered Member ID Chowdhury Member ID Guarantor Name 03/26/2025 1 [employer] (MEDICARE REPLACEMENT/ ADVANTAGE - PPO) [id number] Tano Michelle [id number] Tano Michelle 03/20/2025 1 [employer] (PPO) [id number] Tano Michelle [employer]BM[employer] Tano Michelle 03/20/2025 1 [place] Tano Michelle [id number] Tano Michelle 02/27/2020 1 *SELF PAY* Phil Michelle Notes Date Note Type Note Provider Name and Address Organization Details Recorded Time 11/21/2023 text/html Tano is an 88-year-old man with a history of skin cancer. He developed another lesion in his right temporal area that occasionally scabs over. He has been treated with Efudex ointment. It does not bleed. Constantin Alvarez MD [address] [place] [address],[address], [place], [address], [facility] 11/21/2023 15:01:15 01/02/2024 text/html Lawanda is an 88-year-old man who has had punch biopsy of 2 right temporal skin lesions. The pathology report has come back as invasive basal cell carcinomas on each 1. He does have a history of skin cancer. Constantin Alvarez MD [address] [place] [address],[address], [place], [address], [facility] 01/02/2024 18:51:46 02/08/2024 text/html Vera returns today for postop check and suture removal. Had an excision of a basal cell carcinoma from his right hinduism with a full-thickness skin graft 01/24/2024. The graft was taken from his right Subclavicular area. Pathology showed a basal cell carcinoma with all margins free of tumor and also a seborrheic keratosis. JACQUELYN Del Valle [address] [place] [address],[address], [place], [address], [facility] 02/08/2024 09:54:45 02/06/2025 text/html Patient presents for evaluation and management of sensation in ear for past several months patient states ears echoes in head. Micky Campbell MD [address] [place] [address],[address], [place], [address], [facility] - [facility] [place] [facility] [place] 02/06/2025 13:44:39 03/20/2025 text/html Patient presents in follow-up. States his echo sound in ear. Micky Campbell MD [address] [place] [address],[address], [place], [address], [facility] - [facility] - [place] [facility] [place] 03/20/2025 14:22:33
--- OUTSIDE RECORDS SUMMARY | 2025-04-04 14:47 | XMS_ITS | Clinical Summary ---
Author Organization [facility] Address [address] [place] [address], [address] [place] [address] Care Team Providers Care Optometrist Name Role Phone Unavailable Primary Care Provider Unavailabl e Allergies No known active allergies Medications metoprolol succinate (TOPROL XL) 50 MG extended release tablet 04/14/2016 Acti ve tamsulosin (FLOMAX) 0.4 MG capsule 03/31/2016 Active aspirin 81 MG tablet Take 81 mg by mouth daily Active Active Problems Problem Noted Date Diagnosed Date History of B-cell lymphoma 05/04/2016 Social History Tobacco Use Types Packs/Day Years Used Date Smoking Tobacco: Former Sex and Gender Information Value Date Recorded Sex Assigned at Not on file Legal Sex Male 3:01 AM EST Gender Identity Not on file Sexual Orientation Not on file Last Filed Vital Signs Vital Sign Reading Time Taken Comments Blood Pressure 136/84 05/04/2016 1:20 PM EST Pulse 66 05/04/2016 1:20 PM EST Temperature 36.8 C (98.2 F) 05/04/2016 1:20 PM EST Respiratory Rate 14 05/04/2016 1:20 PM EST Oxygen Saturation - - Inhaled Oxygen Concentration - - Weight 79.1 kg (174 lb 4.8 oz) 05/04/2016 1:20 P M EST Height 180.3 cm (5' 11 ) 05/04/2016 1:20 PM EST Body Mass Index 24.31 05/04/2016 1:20 PM EST Plan of Treatment Not on file
--- OUTSIDE RECORDS SUMMARY | 2025-04-04 14:47 | XMS_ITS | Clinical Summary ---
Author Organization [facility] Address [address] [place] [phone] Phone Care Team Providers Care Commercial Stripper Name Role Phone Unavailable Primary Care Provider Unavailabl e Allergies No known active allergies Medications metoprolol succinate (TOPROL-XL) 50 mg Oral Tablet Sustained Release 24 hr Take 50 mg by mouth daily. Active tamsulosin (FLOMAX) 0.4 mg Oral Capsule, Sust. Release 24 hr Take by mouth daily. 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 Medical History Medical History Date Comments Lymphoma (HCC) Social History Tobacco Use Types Packs/Day Years Used Date Smoking Tobacco: Never Alcohol Use Standard Drinks/Week Comments Not Asked 0 (1 standard drink = 0.6 oz pur e alcohol) Sex and Gender Information Value Date Recorded Sex Assigned at Not on file Legal Sex Male 2:30 PM EDT Gender Identity Not on file Sexual Orientation Not on file Last Filed Vital Signs Vital Sign Reading Time Taken Comments Blood Pressure 122/64 04/29/2015 12:21 PM EST Pulse 84 04/29/2015 12:21 PM EST Temperature 36.8 C (98.2 F) 04/29/2015 12:21 PM EST Respiratory Rate 12 04/30/2014 2:17 PM EST Oxygen Saturation - - Inhaled Oxygen Concentration - - Weight 80.7 kg (178 lb) 04/29/2015 12:21 PM EST Height 180.3 cm (5' 11 ) 04/30/2014 2:17 PM EST Body Mass Index 24.83 04/30/2014 2:17 PM EST Plan of Treatment Health Maintenance Due Date Last Done Comments Wellness Exam Medicare 1938 DTaP/TDaP/Td (1 - Tdap) 1955 Pneumococcal Vaccine 50+ (1 of 2 - PCV) 1955 Zoster (1 of 2) 1955 RSV or 60+ (1 - 1-d ose 75+ series) 2011 COVID-19 Vaccine (1 - 2024-2 6 season) 2025 Influenza Vaccine (#1) 2025 Hepatitis B Vaccine Aged Out No longe r eligible based on patient's age to complete this topic Meningococcal B Vaccine Aged Out No l onger eligible based on patient's age to complete this topic Insurance [employer] MEDICARE PREFERRED MR
--- OUTSIDE RECORDS SUMMARY | 2025-04-04 14:47 | XMS_ITS | Data Portability ---
Author Organization [place] - [facility] Address [address] [place] [address] Assessment Encounter Date Assessment Date Assessment LastModified by Organization Details LastModified Time 10/11/2024 10/11/2024 Patient presente d to office today for their Medicare Annual Wellness Visit. Education was provided on healthy nutrition, including a diet rich in fruits and vegetables, minimizing simple carbohydrates, salt, and saturated fats. Encouraged regular cardiovascular exercise such as walking at least 30 minutes daily, 5 times per week. Emphasized preventive health measures and educated pt on fall prevention and community-based lifestyle interventions to help reduce health risks and promote healthy living. Medicare Preventive Services Check List reviewed and printed for patient. Not available 10/11/2024 11:03:53 Plan of Treatment Reminders Order Date Submit Date Provider Last Modified By Organization Details Last Modified Time Details Appointments None recorde d. Lab None recorde d. Referral general surgeon maldonado l - states he has seen Dr. Nabil mohamud e times for similar issues but it has been a few years so he needed a referra l. 2023 024 SWAPNA Not available 4 23:31:02 cardiol ogist referra l 2023 024 [facility], [address] [place] [address], [id number], 4 13:14:49 Procedures None recorde d. Surgeries None recorde d. Imaging None recorde d. Medication Orders Efudex 5 % topical cream 2023 025 SWAPNA [facility], [address] [facility], [place], [address], 11:06:58 metopro lol succina te ER 25 mg tablet, extende d release 24 hr 2023 024 [email or web address] [facility], [address] [place], [address], 10:21:15 Patient TargetsNo targets recorded. Patient Instructions Encounter Date Encounter Id Patient Instructions Last Modified By Organization Details Last Modified Time 08/23/2023 [id number] copy of echo fro m 2019 given also [email or web address] Not available 08/23/2023 08:44:46 10/14/2023 [id number] body mass index: care instructions [email or web address] Not available 10/14/2023 12:24:01 -follow up with general surgeon for removal of skin lesion -follow up in office for any acute symptoms as neede [email or web address] Not available 11/14/2023 22:21:56 10/11/2024 [id number] advance directives: care instructions tgrosser Not available 10/11/2024 11:38:47 learning about depression tgrosser Not available 10/11/2024 11:38:47 preventing falls : care instructions tgrosser Not available 10/11/2024 11:38:47 high blood pressure: care instructions tgrosser Not available 10/11/2024 11:38:47 learning about high blood pressure tgrosser Not available 10/11/2024 11:38:47 medicare preventive services guide tgrosser Not available 10/11/2024 11:38:47 peroxide to both ears qid 2 days then OV to try to clean ears. tgrosser Not available 10/11/2024 11:38:46 Reason for Referral Occupational Health And Safety Officer Referral for Tr icuspid valve regurgitation Referring Physician: Funmilayo Chi, Family Medicine, Encounter Date: 08/23/2023 General Surgeon Referral for Actinic keratosis states he has seen Dr. Alvarez multiple times for similar issues but it has been a few years so he needed a referral. Referring Physician: Kobe Owusu, Family Medicine, Encounter Date: 10/14/2023 Results Created Date Observation Date Name Description Value Unit Range Abnormal Flag Note LastModifiedBy Organization Detail LastModifiedTime 07/25/19 24 07/26/2023 TSH+F REE T4 TSH 3.610 uIU/m L 0.450- 4.500 Not Available [facility] [address] [place], [address], 07/26/2023 08:26:20 07/25/19 24 07/26/2023 TSH+F REE T4 T4,free(dire ct) 1.03 NG/dL 0.82-1 .77 Not Available [facility] [address] [place], [address], 07/26/2023 08:26:20 07/25/19 24 07/26/2023 CBC WITH DIFFE RENTI AL/PL ATELE T WBC 6.2 x10e3 /uL 3.4-10 .8 Not Available [facility] [address] [place], [address], 07/26/2023 08:26:21 07/25/19 24 07/26/2023 CBC WITH DIFFE RENTI AL/PL ATELE T RBC 4.30 x10e6 /uL 4.14-5 .80 Not Available [facility] [address] [place], [address], 07/26/2023 08:26:21 07/25/19 24 07/26/2023 CBC WITH DIFFE RENTI AL/PL ATELE T hemoglobin 13.1 g/dL 13.0-1 7.7 Not Available [facility] [address] [place], [address], 07/26/2023 08:26:21 07/25/19 24 07/26/2023 CBC WITH DIFFE RENTI AL/PL ATELE T hematocrit 38.9 % 37.5-5 1.0 Not Available [facility] [address] [place], [address], 07/26/2023 08:26:21 07/25/19 24 07/26/2023 CBC WITH DIFFE RENTI AL/PL ATELE T MCV 91 fL 79-97 Not Available [facility] [address] [facility], [place], [address], 07/26/2023 08:26:21 07/25/19 24 07/26/2023 CBC WITH DIFFE RENTI AL/PL ATELE T MCH 30.5 pg 26.6-3 3.0 Not Available [facility] [address] [facility], [place], [address], 07/26/2023 08:26:21 07/25/19 24 07/26/2023 CBC WITH DIFFE RENTI AL/PL ATELE T MCHC 33.7 g/dL 31.5-3 5.7 Not Available [facility] [address] [facility], [place], [address], 07/26/2023 08:26:21 07/25/19 24 07/26/2023 CBC WITH DIFFE RENTI AL/PL ATELE T RDW 13.2 % 11.6-1 5.4 Not Available [facility] [address] [facility], [place], [address], 07/26/2023 08:26:21 07/25/19 24 07/26/2023 CBC WITH DIFFE RENTI AL/PL ATELE T platelets 169 x10e3 /uL 150-45 0 Not Available [facility] [address] [facility], [place], [address], 07/26/2023 08:26:21 07/25/19 24 07/26/2023 CBC WITH DIFFE RENTI AL/PL ATELE T neutrophils 59 % not estab. Not Available [facility] [address] [place], [address], 07/26/2023 08:26:21 07/25/19 24 07/26/2023 CBC WITH DIFFE RENTI AL/PL ATELE T lymphs 33 % not estab. Not Available [facility] [address] [facility], [place], [address], 07/26/2023 08:26:21 07/25/19 24 07/26/2023 CBC WITH DIFFE RENTI AL/PL ATELE T monocytes 6 % not estab. Not Available [facility] [address] [facility], [place], [address], 07/26/2023 08:26:21 07/25/19 24 07/26/2023 CBC WITH DIFFE RENTI AL/PL ATELE T eos 1 % not estab. Not Available [facility] [address] [facility], [place], [address], 07/26/2023 08:26:21 07/25/19 24 07/26/2023 CBC WITH DIFFE RENTI AL/PL ATELE T basos 1 % not estab. Not Available [facility] [address] [place], [address], 07/26/2023 08:26:21 07/25/19 24 07/26/2023 CBC WITH DIFFE RENTI AL/PL ATELE T immature cells TELECOM ENGINEER Not Available [facility] [address] [facility], [place], [address], 07/26/2023 08:26:21 07/25/19 24 07/26/2023 CBC WITH DIFFE RENTI AL/PL ATELE T neutrophils (absolute) 3.7 x10e3 /uL 1.4-7. 0 Not Available [facility] [address] [place], [address], 07/26/2023 08:26:21 07/25/19 24 07/26/2023 CBC WITH DIFFE RENTI AL/PL ATELE T lymphs (absolute) 2.0 x10e3 /uL 0.7-3. 1 Not Available [facility] [address] [facility], [place], [address], 07/26/2023 08:26:21 07/25/19 24 07/26/2023 CBC WITH DIFFE RENTI AL/PL ATELE T monocytes(ab solute) 0.4 x10e3 /uL 0.1-0. 9 Not Available [facility] [address] [facility], [place], [address], 07/26/2023 08:26:21 07/25/19 24 07/26/2023 CBC WITH DIFFE RENTI AL/PL ATELE T eos (absolute) 0.1 x10e3 /uL 0.0-0. 4 Not Available [facility] [address] [facility], [place], [address], 07/26/2023 08:26:21 07/25/19 24 07/26/2023 CBC WITH DIFFE RENTI AL/PL ATELE T baso (absolute) 0.0 x10e3 /uL 0.0-0. 2 Not Available [facility] [address] [facility], [place], [address], 07/26/2023 08:26:21 07/25/19 24 07/26/2023 CBC WITH DIFFE RENTI AL/PL ATELE T immature granulocytes 0 % not estab. Not Available [facility] [address] [place], [address], 07/26/2023 08:26:21 07/25/19 24 07/26/2023 CBC WITH DIFFE RENTI AL/PL ATELE T immature grans (abs) 0.0 x10e3 /uL 0.0-0. 1 Not Available [facility] [address] [facility], [place], [address], 07/26/2023 08:26:21 07/25/19 24 07/26/2023 CBC WITH DIFFE RENTI AL/PL ATELE T NRBC TELECOM ENGINEER Not Available [facility] [address] [facility], [place], [address], 07/26/2023 08:26:21 07/25/19 24 07/26/2023 CBC WITH DIFFE RENTI AL/PL ATELE T hematology comments: TELECOM ENGINEER Not Available [facility] [address] [facility], [place], [address], 07/26/2023 08:26:21 07/25/19 24 07/26/2023 COMP. METAB OLIC PANEL (14) glucose 97 mg/dL 70-99 Not Available [facility] [address] [facility], [place], [address], 07/26/2023 08:26:22 07/25/19 24 07/26/2023 COMP. METAB OLIC PANEL (14) BUN 12 mg/dL 8-27 Not Available [facility] [address] [facility], [place], [address], 07/26/2023 08:26:22 07/25/19 24 07/26/2023 COMP. METAB OLIC PANEL (14) creatinine 1.01 mg/dL 0.76-1 .27 Not Available [facility] [address] [facility], [place], [address], 07/26/2023 08:26:22 07/25/19 24 07/26/2023 COMP. METAB OLIC PANEL (14) eGFR 72 mL/mi n/1.7 3 >59 Not Available [facility] [address] [place], [address], 07/26/2023 08:26:22 07/25/19 24 07/26/2023 COMP. METAB OLIC PANEL (14) BUN/creatini ne ratio 12 10-24 Not Available [facility] [address] [facility] [place], [address], 07/26/2023 08:26:22 07/25/19 24 07/26/2023 COMP. METAB OLIC PANEL (14) sodium 145 mmol/ L 134-14 4 above high normal Not Available [facility] [address] [facility] [place], [address], 07/26/2023 08:26:22 07/25/19 24 07/26/2023 COMP. METAB OLIC PANEL (14) potassium 4.7 mmol/ L 3.5-5. 2 Not Available [facility] [address] [facility] [place], [address], 07/26/2023 08:26:22 07/25/19 24 07/26/2023 COMP. METAB OLIC PANEL (14) chloride 107 mmol/ L 96-106 above high normal Not Available [facility] [address] [place], [address], 07/26/2023 08:26:22 07/25/19 24 07/26/2023 COMP. METAB OLIC PANEL (14) carbon dioxide, total 24 mmol/ L 20-29 Not Available [facility] [address] [place], [address], 07/26/2023 08:26:22 07/25/19 24 07/26/2023 COMP. METAB OLIC PANEL (14) calcium 9.2 mg/dL 8.6-10 .2 Not Available [facility] [address] [place], [address], 07/26/2023 08:26:22 07/25/19 24 07/26/2023 COMP. METAB OLIC PANEL (14) protein, total 6.5 g/dL 6.0-8. 5 Not Available [facility] [address] [place], [address], 07/26/2023 08:26:22 07/25/19 24 07/26/2023 COMP. METAB OLIC PANEL (14) albumin 4.5 g/dL 3.7-4. 7 Not Available [facility] [address] [facility], [place], [address], 07/26/2023 08:26:22 07/25/19 24 07/26/2023 COMP. METAB OLIC PANEL (14) globulin, total 2.0 g/dL 1.5-4. 5 Not Available [facility] [address] [place], [address], 07/26/2023 08:26:22 07/25/19 24 07/26/2023 COMP. METAB OLIC PANEL (14) A/G ratio 2.3 1.2-2. 2 above high normal Not Available [facility] [address] [place], [address], 07/26/2023 08:26:22 07/25/19 24 07/26/2023 COMP. METAB OLIC PANEL (14) bilirubin, total 0.5 mg/dL 0.0-1. 2 Not Available [facility] [address] [place], [address], 07/26/2023 08:26:22 07/25/19 24 07/26/2023 COMP. METAB OLIC PANEL (14) alkaline phosphatase 54 IU/L 44-121 Not Available [facility] [address] [place], [address], 07/26/2023 08:26:22 07/25/19 24 07/26/2023 COMP. METAB OLIC PANEL (14) AST (SGOT) 15 IU/L 0-40 Not Available [facility] [address] [facility], [place], [address], 07/26/2023 08:26:22 07/25/19 24 07/26/2023 COMP. METAB OLIC PANEL (14) ALT (SGPT) 11 IU/L 0-44 Not Available [facility] [address] [place], [address], 07/26/2023 08:26:22 07/25/19 24 07/26/2023 LIPID PANEL cholesterol, total 194 mg/dL 100-19 9 Not Available [facility] [address] [place], [address], 07/26/2023 08:26:23 07/25/19 24 07/26/2023 LIPID PANEL triglyceride s 118 mg/dL 0-149 Not Available [facility] [address] [place], [address], 07/26/2023 08:26:23 07/25/19 24 07/26/2023 LIPID PANEL HDL cholesterol 50 mg/dL >39 Not Available [facility] [address] [place], [address], 07/26/2023 08:26:23 07/25/19 24 07/26/2023 LIPID PANEL VLDL cholesterol filemon 21 mg/dL 5-40 Not Available [facility] [address] [place], [address], 07/26/2023 08:26:23 07/25/19 24 07/26/2023 LIPID PANEL LDL chol calc (rust) 123 mg/dL 0-99 above high normal Not Available [facility] [address] [place], [address], 07/26/2023 08:26:23 07/25/19 24 07/26/2023 LIPID PANEL comment: TELECOM ENGINEER Not Available [facility] [address] [place], [address], 07/26/2023 08:26:23 07/25/19 24 07/26/2023 VITAM IN B12 AND FOLAT E vitamin B12 344 pg/mL 232-12 45 Not Available [facility] [address] [facility], [place], [address], 07/26/2023 08:26:24 07/25/19 24 07/26/2023 VITAM IN B12 AND FOLAT E folate (folic acid), serum 11.6 NG/mL >3.0 A serum folat e melvina ntrat ion of less than 3.1 ng/mL is consi dered to repre sent clini filemon defic iency . Not Available [facility] [address] [facility], [place], [address], 07/26/2023 08:26:24 07/25/19 24 07/26/2023 VITAM IN D, 25-HY DROXY vitamin D, 25-hydroxy 35.7 NG/mL 30.0-1 00.0 Vitam in D defic iency has been defin ed by the Insti tute of Medic ine and an Endoc rine Socie ty pract ice guide line as a level of serum 25-OH vitam in D less than 20 ng/mL (1,2) . The Endoc rine Socie ty went on to furth er defin e vitam in D insuf ficie ncy as a level betwe en 21 and 29 ng/mL (2). 1. IOM (Inst itute of Medic ine). 2009. Dieta ry refer ence jeffrey es for calci um and D. Kayla ashley DC: [facility] Press . 2. Herminio donahue MF, Paras duncan NC, Keisha off-F errar i WILLIS, et al. Evalu ation , treat ment, and preve ntion of vitam in D defic iency : an Endoc rine Socie ty clini filemon pract ice guide line. JCEM. 2010; 96(7) :1911 -30. Not Available [facility] [address] [facility], [place], [address], 07/26/2023 08:26:25 07/25/19 24 07/26/2023 MAGNE SIUM magnesium 2.3 mg/dL 1.6-2. 3 Not Available [facility] [address] [facility], [place], [address], 07/26/2023 08:26:26 08/10/19 24 08/10/2023 US, duple x, carot id arter y [facility] Name: ASHLEY ENRIQUEZ [address] [place] [facility] Phys: Alon DANIELS, [place] [address] : 1935 Age: 88 Sex: M Acct: [id number] Loc: DAVID PHONE #: [phone] Exam Date: 2023 Status : REG CLI FAX #: Rad# [id number] Unit# [id number] Admit Date: 2023 EXAMS: CPT CODE: [id number] CAROTI D DUPLEX DOPPLE R 50046 BILATE RAL CAROTI D DUPLEX , 024: CLINIC AL HISTOR Y: 88-yea r-old male with dizzin ess and visual distur bances . Remote histor y of tobacc o use COMPAR PUNEET: CT neck, 014 TECHNI QUE: Multip le graysc jan sonogr aphic images of the bilate ral caroti d arteri es were obtain ed in the transv erse and longit udinal planes . Color Dopple r and spectr al wavefo rm analys is was applie d assess vascul ar flow. All stenos is percen tages are made in refere nce to the distal ICA. FINDIN GS: There is no apprec iable athero sclero tic plaque of the visual ized caroti d system s. The peak systol ic veloci ties of the right and left ICAs are 127 cm/s and 93 cm/s, respec tively . The veloci ty ratios are normal bilate rally and normal flow is identi fied within the bilate ral verteb ral and subcla vian arteri es. IMPRES RAFA: NO ATHERO SCLERO TIC PLAQUE OF THE BILATE RAL ICAS. Electr onical ly Signed by TEDDY DICKERSON MD on 2023 at 1204 Report ed and signed by: TEDDY DICKERSON MD CC: Funmilayo Chi Dictat ed Date/T marietta: 2023 (1204) Techno logist : TEDDY DICKERSON STEWAR T Transc ribed Date/T marietta: 2023 (1204) Transc riptio nist: DR.HAG VU Electr onic Signat ure Date/T marietta: 2023 (1204) Printe d Date/T marietta: 2023 (1207) BATCH NO: N/A PAGE 1 Signed Report CC'ed Logic: Orderi ng Provid er: ALON NOLEN Attend ing Provid er: ALON NOLEN Referr ing Provid er: ALON NOLEN Consul ting Provid er: ALON NOLEN [address], [place], [address], 08/23/2023 08:17:21 08/18/19 24 08/18/2023 - ECHO w/spe c/col or flow [facility] Medica l Name: ASHLEY ENRIQUEZ [address] [place] [address] Drive Phys: Alon DANIELS, [place] [address] : 1935 Age: 88 Sex: M Acct: [id number] Loc: KittyJADEN PHONE #: Exam Date: 2023 Status : DEP CLI FAX #: [phone] Rad# [id number] Unit# [id number] Admit Date: 2023 EXAMS: CPT CODE: [id number] ECHO W/SPEC /COLOR FLOW 63255 Reason for study: Dizzin ess/li ghthea dednes s Left ventri cular diasto le: 5.2 Left ventri cular systol e: 3.5 Septal wall thickn ess: 1.1 Website Developer ior wall thickn ess: 1.2 Right ventri cular diasto le: 2.8 Left Atrium : 3.8 Aortic root: 3.1 TR veloci ty: 2.66 m/s Impres rafa: 1. Normal left ventri cular chambe r size with normal left ventri cular systol ic functi on. Estima ara ejecti on fracti on is 55-60% . There is mild concen tric hypert rophy of the left ventri edgardo. There is Dopple r eviden ce for impair ed relaxa tion of the left ventri edgardo 2. No segmen salvador wall motion abnorm alitie s 3. Normal left atrial and right atrial size 4. Normal right ventri cular size and functi on 5. Normal mitral valve, with mild mitral insuff icienc y 6. Normal aortic valve, with modera te aortic insuff icienc y 7. No perica rdial effusi on 8. Normal aortic root 9. Normal tricus pid valve, with mild to modera te tricus pid insuff icienc y. Tricus pid regurg itant jet veloci ty is 2.66 m/s implyi ng a right ventri cular systol ic pressu re of approx imatel y 39 mmHg Electr onical ly Signed by ULICES CHAMPAGNE MD on 2023 at 1350 Report ed and signed by: ULICES CHAMPAGNE MD PAGE 1 Signed Report (MAXIMO NUED) [facility] Medica l Ce Name: ASHLEY ENRIQUEZ [facility] [employer] [address] [employer] [address] [employer] [address] Phys: Alon DANIELS, Funmilayo [place] [facility] [place] [address] : 1935 Age: 88 Sex: M Acct: [id number] Loc: DAVID PHONE #: [phone] Exam Date: 2023 Status : DEP CLI FAX #: [phone] Rad# [id number] Unit# [id number] Admit Date: 2023 EXAMS: CPT CODE: [id number] ECHO W/SPEC /COLOR FLOW 63231 CC: Funmilayo Chi Dictat ed Date/T marietta: 2023 (1350) Techno logist : JAIMEE WISE TER Transc ribed Date/T marietta: 2023 (1350) Transc riptio nist: ER Electr onic Signat ure Date/T marietta: 2023 (1350) Printe d Date/T marietta: 2023 (1354) BATCH NO: N/A PAGE 2 Signed Report CC'ed Logic: Orderi ng Provid er: ALON NOLEN Attend ing Provid er: ALON NOLEN Referr ing Provid er: ALON NOLEN Consul ting Provid er: ALON NOLEN [place] [address], [place], [address], 08/23/2023 08:32:17 10/31/19 24 10/31/2023 XR, chest No observ ation record ed. [address], [place], [address], 11/02/2023 14:45:09 11/10/19 24 11/08/2023 XR, chest No observ ation record ed. [address], [place], [address], 11/10/2023 08:21:03 01/03/20 24 01/03/2024 US, doppl er echoc ardio gram No observ ation record ed. [address], [place], [address], 01/04/2024 11:43:39 Result Notes None recorded. 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 Active 2006-07 008 [place] Lafle[place] - [facility] 9 10:46:49 Essential hypertension 28812837 Active 2016 Funmilayo Chi MD [address], [place], [address], [place] - [facility] 7 11:33:35 Benign prostatic hyperplasia with outflow obstruction 292666218 Active 2016 Funmilayo Chi MD [address], [place], [address], [facility] - [facility] 7 11:33:36 Tachycardia 8115042 Active 2018 Rakan benjamin, [place] - [facility] 9 11:14:12 Actinic keratosis 250099133 Active 2023 Kobe Owusu, CNC FIELD SERVICE ENGINEER [address], [place], [address], [facility] - [facility] 4 12:21:01 Problem Notes Documentation Provider Name and Address Organization Details Recorded Time Pathology Note : [place] [address] PATIENT NAME: ASHLEY ENRIQUEZ UNIT NO.: [id number] ATTENDING DOC: Constantin Alvarez MD ROOM NO.: ADMISSION DATE: LOCATION: [facility] BIRTHDATE: [birth year] ACCT NUM: [id number] DICTATED BY: Raul Fernandez MD __ TEXT [employer] Specimen Number: [id number] [employer] Accession Number: [id number] Collection Date : 2023-11-21 Received Date : 2023-11-23 Reported Date : 2023-11-24 REPORT TITLE PATHOLOGY REPORT FINAL DIAGNOSIS A. SKIN PUNCH BIOPSY, RIGHT UPPER WORSHIP LESION: -INVASIVE BASAL CELL CARCINOMA. -CARCINOMA IS PRESENT AT SKIN SURFACE EDGES OF BIOPSY. B. SKIN PUNCH BIOPSY, RIGHT LOWER WORSHIP LESION: -INVASIVE BASAL CELL CARCINOMA. -CARCINOMA IS PRESENT AT SKIN SURFACE EDGES OF BIOPSY. Pathologist Signature Raul Fernandez M.D., Pathologist Electronic Signature : 2023-11-24 13:20 CLINICAL INFORMATION Nonhealing lesion to right temporal area previously tx with efuolex, irregular flat to slightly raised skin lesion with eschar SPECIMENS: A. Right congregational upper B. Right congregational lower MICROSCOPIC EXAMINATION A and B. Sections through both specimens show invasive basal cell carcinomas. The nests of basaloid tumor cells invade into the dermis. The carcinomas are present at the edges of the biopsies. Suggest complete excision as clinically indicated. GROSS DESCRIPTION A. Received in a container of 10% neutral buffered formalin labeled with the patient's name and right congregational upper aspect is a 0.2 cm diameter skin punch biopsy excised to a depth of 0.6 cm. The specimen is inked blue and submitted in toto in one cassette. ASHLEY ENRIQUEZ [id number] PATHOLOGY REPORT Continu B. Received in a container of 10% neutral buffered formalin labeled with the patient's name and right congregational-lower aspect is a 0.2 cm diameter skin punch biopsy excised to a depth of 0.5 cm. The specimen is inked blue and submitted in toto in one cassette. (CN) CPT CODES A) 73397 B) 70073 COPY TO Negrito James.[facility] PERFORMING SITE WHICH ARE FOR INFORMATIONAL PURPOSES ONLY. CPT CODES ARE PAYOR SPECIFIC AND CPT CODING IS THE SOLE RESPONSIBILITY OF THE BILLING ENTITY. THE TECHNICAL COMPONENT AND GROSS DESCRIPTION IS PERFORMED AT [address], [address] [address]. THE PROFESSIONAL COMPONENT PERFORMED AT [address], [address] [address] at 1320 Signature on File Raul Fernandez MD Dictated: 11/21/23 1452 Transcribed: Transcribed by: JENNY Crocker Logic: Attending Provider: NABIL MAHER Referring Provider: NABIL MAHER Consulting Provider: ALON Owusu, CNC FIELD SERVICE ENGINEER [address], [place], [address], [place] - [facility] 12/04/2023 21:31:17 Procedures Surgical History Date Name Laterality Status Provider Name and Address Organization Details Recorded Time 10/20/19 25 Cerumen Removal completed Marco Pérez MD [address], [place], [address], [place] - [facility] 10/19/2024 10:45:38 10/12/19 25 Advance Care Planning completed Lala Hay [place] - [facility] 10/11/2024 11:03:54 10/12/19 25 Functional Status Assessed completed Lala Sena [place] - [facility] 10/11/2024 11:03:54 07/25/19 24 Advance Care Planning completed Thais Romano [place] - [facility] 07/25/2023 10:14:19 07/25/19 24 Functional Status Assessed [facility] [place] [facility] 07/25/2023 10:14:20 07/21/19 23 Advance Care Planning [place]ais Romano [place] [facility] 07/21/2022 10:56:18 07/21/19 23 Functional Status Assessed completed Thais Romano [place] [facility] 07/21/2022 10:56:18 11/09/19 18 Cerumen Removal completed Lena Hernandez, LUCY [address], [place], [address], [place] - [facility] 11/08/2017 15:52:44 Pacemaker Placement completed Lala Sena [place] [facility] 10/11/2024 11:10:50 hernia repair completed [facility] 10/11/2024 11:11:08 Ablate heart dysrhythm focus [place] Nafisa Guzman [place] [facility] 09/24/19 17 10:54:05 Imaging Results None recorded. Procedure Notes None [...] 50 mg tablet,exte nded release 24 hr TAKE 1 TABLET BY MOUTH ONCE A DAY. 08/21 completed Not Available Not Available Not Available hydrocodone 5 mg-acetamin ophen 325 mg tablet 07/23 completed Not Available Not Available Not Available fluorouraci l 5 % topical cream APPLY A SUFFICIEN T AMOUNT TO COVER THE LESIONS IN THE AFFECTED AREA(S) BY TOPICAL ROUTE 2 TIMES PER DAY 10/11 completed Not Available Not Available Not Available clopidogrel 75 mg tablet TAKE 1 TABLET BY MOUTH ONCE DAILY. active Not Available Not Available No t Available ciprofloxac in 500 mg tablet 11/08 completed Not Available Not Available Not Available oxycodone-a cetaminophe n 5 mg-325 mg tablet TAKE (1) TABLET BY MOUTH EVERY EIGHT HOURS NEEDED FOR PAIN 10/11 completed Not Available Not Available Not Available tamsulosin 0.4 mg capsule TAKE 1 CAPSULE BY MOUTH AT BEDTIME TO HELP WITH VOIDING. active Not Available Not Available No t Available pantoprazol e 40 mg tablet,desean yed release TAKE 1 TABLET BY MOUTH ONCE DAILY. 10/11 completed Not Available Not Available Not Available lisinopril 10 mg tablet TAKE 1 TABLET BY MOUTH ONCE A DAY. active Not Available Not Available No t Available aspirin 81 mg chewable tablet Chew [...] completed Not Available Not Available Not Available doxycycline hyclate 100 mg tablet Take 1 tablet twice a day by oral route. 11/08 completed Not Available Not Available Not Available dutasteride 0.5 mg capsule TAKE 1 CAPSULE BY MOUTH ONCE A DAY TO HELP WITH ENLARGED PROSTATE. active Not Available Not Available No t Available Afluria Qd 2019- (36 mos up)(PF)60 mcg (15 mcg x4)/0.5 mL IM syringe 01/22 completed Not Available Not Available Not Available aspirin 81 mg capsule Take 1 capsule every day by oral route. 10/11 completed Not Available Not Available Not Available Vitals Date Recorded Body height Body mass index (BMI) Body weight Oxygen saturation Oxygen saturation in Arterial blood by Pulse oximetry Heart rate Respiratory rate Pain severity - 0-10 verbal numeric rating [Score] - Reported Systolic And Diastolic Provider Name and Address Organization Details Last Updated DateTime 4 180.34 cm 23.3 kg/m2 07842.9 3 g 97 % 97 % 76 /min 18 /min 0 130/78 mm[Hg] [facility]az[facility] 08:14:58 Date Recorded Body height Body mass index (BMI) Body weight Body temperature Heart rate Oxygen saturation Oxygen saturation in Arterial blood by Pulse oximetry Respiratory rate Pain severity - 0-10 verbal numeric rating [Score] - Reported Systolic And Diastolic Provider Name and Address Organization Details Last Updated DateTime 5 180.34 cm 22.2 kg/m2 15282.1 9 g 97.9 [degF] 68 /min 98 % 98 % 18 /min 0 126/62 mm[Hg] Lala Sena [facility] 5 11:05:05 Date Recorded Body height Body mass index (BMI) Body weight Body temperature Heart rate Oxygen saturation Oxygen saturation in Arterial blood by Pulse oximetry Respiratory rate Systolic And Diastolic Provider Name and Address Organization Details Last Updated DateTime 4 180.34 cm 23.3 kg/m2 46134.9 3 g 98.4 [degF] 81 /min 97 % 97 % 18 /min 126/74 mm[Hg] Alexa Beck [facility] 4 11:54:52 Date Recorded Body height Body mass index (BMI) Body weight Body temperature Heart rate Oxygen saturation Oxygen saturation in Arterial blood by Pulse oximetry Respiratory rate Pain severity - 0-10 verbal numeric rating [Score] - Reported Systolic And Diastolic Provider Name and Address Organization Details Last Updated DateTime 5 180.34 cm 22.3 kg/m2 48623.7 8 g 97.9 [degF] 70 /min 96 % 96 % 18 /min 0 120/70 mm[Hg] Lala Sena [place] - [facility] 10:29:23 Date Recorded Body height Provider Name an d Address Organization Details Last Updated DateTime 05/01/2024 180.34 cm Andie Youssef [place] - [facility] 2023 09:24:53 Social History Question Answer Notes LastModified by Organizat ion Details LastModified Time Tobacco Smoking Status Former Smoker Nafisa benjamin [place] - [facility] 09/23/2016 10:52:45 Do You Have An Advance Directive? No Information not available 09/23/2016 Are You Blind Or Do You Have Difficulty Seeing? No Information not available 09/23/2016 What Is Your Level Of Caffeine Consumption? Moderate Information not available 09/23/2016 Have You Been To An Area Known To Be High Risk For COVID-19? No Information not available 10/11/2024 Are You Deaf Or Do You Have Serious Difficulty Hearing? No Information not available 09/23/2016 What Type Of Diet Are You Following? REGULAR Information not available 10/11/2024 What Is The Highest Grade Or Level Of School You Have Completed Or The Highest Degree You Have Received? [id number] Information not available 10/11/2024 Have There Been Any Changes To Your Family Or Social Situation? No Information no t available 10/11/2024 What Is The Fluoride Status Of Your Home? Fluoridated Information not available 10/11/2024 When Did You Quit Smoking? 16+yearspedro romero Information not available 10/11/2024 Hard Of Hearing Or Deaf In One Or Both Ears? No Information not available 09/23/2016 Legally Blind In One Or Both Eyes? No Information no t available 09/23/2016 Live Alone Or With Others? With Others Information not available 09/23/2016 What Was The Date Of Your Most Recent Tobacco Screening? 10/19/2024 Information not available 10/19/2024 How Many Children Do You Have? 2 Information not available 06/20/2018 What Is Your Current Pack Years? 10-19packyears Information not available 10/11/2024 What Is Your Relationship Status? Information not available 09/23/2016 Seat Belts Used Routinely Yes Information not available 09/23/2016 Are You Sexually Active? No Information not available 10/11/2024 Smoke Alarm In Home Yes Information not available 09/23/2016 Do You Have Smoke And Carbon Monoxide Detectors In Your Home? Yes Information not available 10/11/2024 At What Age Did You Start Smoking Tobacco? 15 Information not available 10/11/2024 Are You Passively Exposed To Smoke? No Information no t available 10/11/2024 How Much Tobacco Do You Smoke? No Information not available 10/11/2024 Has Tobacco Cessation Counseling Been Provided? No Information not available 10/11/2024 How Many Years Have You Smoked Tobacco? 15 Information not available 10/11/2024 Do You Have Difficulty Walking Or Climbing Stairs? No Information not available 09/23/2016 What Contraceptive Method Was Reported At Start Of This Visit? None Information not available 10/11/2024 What Contraceptive Method Was Reported At End Of This Visit? None Information not available 10/11/2024 Do You Want To Talk About Contraception Or Prevention During Your Visit Today? No - This Question Does Not Apply To Me/I Prefer Not To Answer Information not available 10/11/2024 What Is Your Reason For Having No Contraceptive Method At Start Of This Visit? Abstinence Information not available 10/11/2024 Sex: Unknown Functional Status Question Answer Note LastModified by Organizat ion Details LastModified Time How many times per week do you consume alcohol? Less than 1 time per week Information not available 10/11/2024 Do you use any illicit or recreational drugs? No Information not available 10/11/2024 Do you or have you ever used any other forms of tobacco or nicotine? No Information not available 10/11/2024 What is your level of alcohol consumption? Occasional Information not available 09/23/2016 Are you currently employed? No Information not available 09/23/2016 Do you have transportation difficulties? No Information not available 10/11/2024 Are you able to walk independently without assistance or assistive devices? YESWOREST Information not available 09/23/2016 Do you have difficulty doing errands alone? No Information not available 09/23/2016 Are you able to care for yourself independently? Yes Information not available 09/23/2016 What is your occupation? retired Information not available 06/20/2018 Do you have difficulty dressing, bathing, grooming, or toileting? No Information not available 09/23/2016 What is your exercise level? None Information not available 10/11/2024 Mental Status Question Answer Note LastModified by Organizat ion Details LastModified Time Do you feel stressed (tense, restless, nervous, or anxious, or unable to sleep at night)? [id number] Information not available 10/11/2024 Do you have difficulty concentrating, remembering or making decisions? No Information no t available 09/23/2016 Family History Relationship Description Onset Age of this Age Resolved Age Notes LastModified by Organization Details LastModified Time Mother Family history of malignant neoplasm Not available 2016 10:50:51 Brother Chronic obstructive pulmonary disease Not available 2016 10:51:22 Brother Asthma Not available 09/23/2016 10:51:37 Sister Asthma Not available 0 09/23/2016 10:51:37 Medical History No medical history recorded. Immunizations Vaccine Type Date Status Note Provider Nam e and Address Organization Details Recorded Time Influenza, split virus, quadrivalent, PF 03/23/2018 completed Not Available [facility] 5 10:16:25 COVID-19, mRNA, LNP-S, PF, 100 mcg/0.5mL dose or 50 mcg/0.25mL dose 08/07/2020 completed Not Available [facility] 5 10:16:25 COVID-19, mRNA, LNP-S, PF, 100 mcg/0.5mL dose or 50 mcg/0.25mL dose 09/04/2020 completed Not Available [facility] 5 10:16:25 COVID-19, mRNA, LNP-S, PF, 100 mcg/0.5mL dose or 50 mcg/0.25mL dose 04/21/2021 completed Not Available [facility] 10:16:25 COVID-19, mRNA, LNP-S, bivalent, PF, 50 mcg/0.5 mL or 25mcg/0.25 mL dose 03/17/2022 completed Not Available [facility] 10:16:25 Influenza, high-dose, trivalent, PF 04/02/2022 completed Not Available [facility] 2024 10:16:25 Influenza, high-dose, trivalent, PF 04/06/2023 completed Not Available [facility] 2024 10:16:25 Influenza, high-dose, quadrivalent, PF 04/11/2020 completed Thais Crenshaw MD [address], [place], [address], [place] [facility] 04/11/2020 12:29:51 Influenza, high-dose, quadrivalent, PF 03/27/2021 completed Kandi Briones null, [place] - [facility] 03/27/2021 10:22:15 Influenza, high-dose, trivalent, PF 05/01/2024 completed Andie Youssef [place], [place] - [facility] 05/01/2024 09:26:41 Past Encounters Encounter ID Performer Location Encounter Start Date Encounter Closed Date Diagnosis/Indication Diagnosis SNOMED-CT Code Diagnosis ICD10 Code Diagnosis IMO Codes Diagnosis Note [id number] Funmilayo Chi MD [address] [place] [address] 09/23/2016 10:35:18 09/23/2016 11:12:34 Essential hypertension 31262964 I10 Benign pro static hyperplasia with outflow obstruction 417947313 N40.1 Body mass index 20-24 - normal 643536179 Z68.24 [id number] Funmilayo Chi MD [address] [place] [address] 12/01/2016 11:07:26 12/01/2016 11:47:52 Tick bite 81649455 S30.860A [id number] Lena Hernandez APRN [address] [place] [address] 05/27/2017 09:58:51 05/27/2017 10:58:53 Influenza-like symptoms 986874441 R68.89 Influenza caused by Influenza A virus 302030787 J09.X2 [id number] Lena Hernandez APRN [address] [place] [address] 11/08/2017 10:19:28 11/08/2017 11:24:09 [facility] 65[facility] H61.22 [id number] Rakan Ocampo MD [address] [place] [address] 06/20/2018 10:19:33 06/20/2018 11:21:15 Essential hypertension 53429917 I10 Benign pro static hyperplasia with outflow obstruction 298024456 N13.8 Tachycardia 5423036 R00. 0 [id number] Funmilayo Chi MD [address] [place] [address] 06/26/2019 17:06:20 06/26/2019 17:34:08 Essential hypertension 04697511 I10 Benign pro static hyperplasia with outflow obstruction 224560102 N40.1 Hypertensive disorder 38 378697 I10 Body mass index 20-24 - normal 951226094 Z68.23 [id number] Funmilayo Chi MD [address] [place] [address] 01/23/2020 18:09:34 01/23/2020 19:14:19 Right inguinal hernia 849972417 K40.90 [id number] Thais Crenshaw MD [address] [place] [address] 04/11/2020 11:26:01 04/11/2020 11:53:07 Administration of influenza vaccine 08991476 Z23 [id number] Funmilayo Chi MD [address] [place] [address] 07/23/2020 09:35:47 07/23/2020 10:02:59 Essential hypertension 77115231 I10 Benign pro static hyperplasia with outflow obstruction 284413809 N40.1 Hypertensive disorder 38 470889 I10 [id number] Marco Pérez MD [address] [place] [address] 03/27/2021 10:10:38 03/27/2021 10:30:22 Administration of influenza vaccine 64998428 Z23 [id number] Funmilayo Chi MD [address] [place] [address] 07/13/2021 17:37:15 07/13/2021 18:42:00 Hypertensive disorder 04098536 I10 [id number] Funmilayo Chi MD [address] [place] [address] 07/21/2022 09:57:45 07/21/2022 12:48:07 Adult health examination 427362503 Z00.00 Depression screening 171 566257 Z13.89 Examinatio n of blood pressure 193155249 Z01.30 Diet education 56219804 Z71.3 Counseling 171233380 Z71 .82 Exercise counseling . Patient encouraged to exercise 30 minutes 5 days a week. At [facility] ed risk for falls 904395374 Z91.81 STEADI FAST screening score of . Advance care planning 71 6333131 Z71.89 Body mass index 20-24 - normal 820661053 Z68.23 Benign pro static hyperplasia with outflow obstruction 438959394 N40.1 Hypertensive disorder 38 584672 I10 Screening for malignant neoplasm of prostate 872533039 Z12.5 [id number] Funmilayo Chi MD [address] [place] [address] 07/25/2023 10:04:53 07/25/2023 10:56:09 Adult health examination 430352160 Z00.00 Depression screening 171 639840 Z13.31 Examinatio n of blood pressure 661719171 Z01.30 Diet education 94900882 Z71.3 At [facility] ed risk for falls 420338708 Z91.81 STEADI FAST screening score of . Advance care planning 71 7907328 Z71.89 Finding of body mass index 017761434 Z68.22 Hypertensive disorder 38 714043 I10 Benign pro static hyperplasia with outflow obstruction 101779709 N40.1 Exercises education, guidance, and counseling 004237721 Z71.82 Exercise counseling . Patient encouraged to exercise 30 minutes 5 days a week. Lightheadedness 58272553 8 R42 Mixed hyperlipidemia 267 439456 E78.2 Vitamin D deficiency 347 29648 E55.9 Cobalamin deficiency 190 299723 E53.8 [id number] Funmilayo Chi MD [address] [place] [address] 08/23/2023 07:50:32 08/23/2023 08:45:55 Tricuspid valve regurgitation 345209764 I07.1 Hypertensive disorder 38 492004 I10 Orthostati c hypotension 50495462 I95.1 [id number] Kobe Owusu [address] [place] [address] 10/14/2023 11:29:02 10/14/2023 12:25:28 Body mass index 20-24 - normal 529276303 Z68.23 Actinic keratosis 636596 007 L57.0 [id number] Leighann Carranza [address] [place] [address] 05/01/2024 09:13:06 05/01/2024 09:29:06 Influenza vaccine needed 5958583057 106 Z23 [id number] Marco Pérez MD [address] [place] [address] 10/11/2024 10:46:40 10/11/2024 11:36:32 Adult health examination 123458740 Z00.00 Depression screening 171 094591 Z13.31 A depression screening was completed via a standardiz ed screening tool. 5 minutes were spent discussing depression screening results and risk factors. Examinatio n of blood pressure 129141004 Z01.30 Diet education 01860719 Z71.3 Counseling 102883813 Z71 .82 Exercise counseling . Patient encouraged to exercise 30 minutes 5 days a week. At [facility] risk for falls 862749290 Z91.81 STEADI FAST screening score of __8___. Advance care planning 71 7789343 Z71.89 Malignant lymphoma 26764 0007 C85.90 Benign pro static hyperplasia with outflow obstruction 869430652 N40.1 Hypertensive disorder 38 487366 I10 Essential hypertension 70221213 I10 Tachycardia 0077462 R00. 0 Impacted c erumen of bilateral ears 4880281720 241546 H61.23 834279 Body mass index 20-24 - normal 678805160 Z68.22 6523854004 [id number] Marco Pérez MD [address] [place] [address] 10/19/2024 10:14:46 10/19/2024 10:43:43 Impacted cerumen of bilateral ears 2291429007 510068 H61.23 846585 resolved Body mass index 20-24 - normal 490823052 Z68.22 8809451803 Health Concerns Section Related Observation LastModified by Organization Detai ls LastModified Time None Recorded Concern Status LastModified by Organization Details LastModified Time None Recorded Advance Directives Directive N: Payers Insurance Date Sequence Insurance Name Policy Number Policy Chowdhury Covered Member ID Chowdhury Member ID Guarantor Name 05/01/2024 1 [employer] (PPO) [id number] [facility] 10/25/2024 1 [employer] (MEDICARE REPLACEMENT/ ADVANTAGE - PPO) [id number] Ashley Enriquez [id number] Ashley Enriquez Notes Date Note Type Note Provider Name and Address Organization Details Recorded Time 08/23/2023 text/html light-headed on standing x 1 year short of breath when doing chores now x couple of months flomax, dutasteride, and metoprolol succ 25 mg,recently decreased from 50 mg because of the dizziness, light headedness carotid dopplers ,no plaquefeb 2023 echo showed tricuspid regurgitationmarch revious echo feb 2020 at [facility] here Funmilayo Chi MD [address], [place], [address], [place] - [facility] 08/24/2023 10:22:50 10/14/2023 text/html Ashley is a 88-year-old male that presents to the office with a chief complaint of spot on the right side of face in the congregational region that he cannot get to heal.Has been there for over a month or longer.Has not be using anything OTC.It does it itch and sting at times.Reports having similar lesions in the past that he had removed by Dr. Alvarez. Kobe Francoise, [employer] [address], [place], [address], [place] - [facility] 11/14/2023 22:22:09 10/11/2024 text/html Medicare Annual Wellness VisitReported by PatientSocial/Behaviora l HistoryFor diet and nutrition, patient reportshealthy diet. For fracture risk, patient reportsno history of fractures,no recent explained fracture,no sudden unexplained fractures, andno previous musculoskeletal injuries. For physical activity, patient reportsgood physical condition.Mental Status:For speech/motor difficulties, patient reportsslowed reaction timebut reportsno speech difficulties,no difficulty expressing formulated concepts,no difficulty with fine manipulative tasks,no difficulty writing/copying, anddoes not knock things over when trying to pick them up. For depression risk, patient reportsnever feels sad, empty, or tearful,no loss of interest in activities,no significant changes in weight,no sleep disturbances or insomnia,no agitation,no loss of energy,no feelings of worthlessness or guilt,no thoughts of suicide,no history of depression, andno history of mood disorders. For orientation, patient reportsno disorientation to time,no disorientation to date, andno disorientation to place. For concentration and memory, patient reportsno decreased concentrating ability,no memory lapses or loss, anddoes not forget words.Functional AbilityFor hearing, patient reportsfluctuating. For vision, patient reportsno vision problems. For activities of daily living, patient reportsable to bathe with limited or no assistance,able to contol urination and bowels,able to dress with limited or no assistance,able to feed self with limited or no assistance,able to get out of chair or bed with limited or no assistance,able to groom with limited or no assistance, andable to toilet with limited or no assistance. For instrumental activities of daily living, patient reportsable to do house work with limited or no assistance,able to grocery shop with limited or no assistance,able to manage medications with limited or no assistance,able to manage money with limited or no assistance,able to prepare meals with limited or no assistance, andable to use the phone with limited or no assistance. For falls risk assessment, patient reportsno frequent falls while walking,no fall in the past year,no fall since last visit, andno dizziness/vertigo. For home safety, patient reportsno unsafe lemuel hazzards,no unsafe stairs,no unsafe gas appliances,working smoke/co detectors,use of seatbelts,has hand bars in the bathroom/shower, andgood lighting in the home. For current level of pain, patient reportsno pain: 0/10. Here for medicare AWE. Feels well. UP to date on labs. Declines immunizations. C/O echo in ears and decreased hearing. Marco Pérez MD [address], [place], [address], [facility] - [facility] 10/11/2024 11:39:29 10/19/2024 text/html C/O cerumen impactions with decreased hearing. Has been doing peroxide qid bilat. Marco Pérez MD [address], [place], [address], [email or web address] - [facility] 10/19/2024 10:47:05
[2025-04-04 18:03] LABS: Free T4 (Free Thyroxine) 0.86 ng/dl (0.78-2.19)
[2025-04-04 18:47] LABS: Albumin Level 4.0 g/dl (3.5-5.0)
[2025-04-04 18:48] LABS: Chloride 103 mmol/L (98-107); Potassium 4.4 mmoL/L (3.5-5.1); Sodium 137 mmol/L (136-145)
[2025-04-04 18:50] LABS: Alanine Aminotransferase 20 U/L (12-78); Anion Gap 8.4 mEq/L (5-15); Aspartate Amino Transferase 34 U/L (17-59); Bilirubin,Unconjugated 0.7 mg/dL (0.0-1.1); Blood Urea Nitrogen 10 mg/dl (9-20); Carbon Dioxide 30 mmol/L (22.0-30.0); Creatinine,Serum 0.90 mg/dl (0.66-1.25); Estimated Glomerular Filt Rate 80 ml/min (>60); GFR (African American) 96 ML/MIN (>60); Total Protein,Serum 6.2 g/dl (6.3-8.2)
[2025-04-04 18:51] LABS: Alkaline Phosphatase 56 U/L (38-126); Bilirubin,Direct 0.1 mg/dl (0.0-0.4); Bilirubin,Indirect 0.6 mg/dL (0.0-0.9); Bilirubin,Total 0.7 mg/dl (0.2-1.3); Calcium 8.6 mg/dl (8.4-10.2); Cholesterol 116 mg/dl (140-200); Glucose 86 mg/dl (74-100); HDL Cholesterol 55 mg/dl (40-60); Magnesium 1.8 mg/dl (1.6-2.3); Triglycerides 68 mg/dl (30-150)
[2025-04-04 19:18] LABS: Thyroid Stimulating Hormone 4.21 uIU/mL (0.465-4.68)
== END 2025-04-04 23:59 | disposition home or self-care (01) ==
LOC: LAB 14:06
PROVIDERS: PCP Family Medicine; Visit Provider Physician Assistant
DX: I25.10 Atherosclerotic heart disease of native coronary artery without angina pectoris (principal); E78.5 Hyperlipidemia, unspecified; I10 Essential (primary) hypertension
CPT/HCPCS: 36415; 80048; 80061; 80076; 83735; 84439; 84443; 85025